=== PATIENT | male | born 1950 | race Caucasian/White ===

== ENCOUNTER 2016-09-13 11:33 | Inpatient (IN) ==
[2016-09-13 12:26] LABS: Basophils % 0.3 %; Eosinophils % 0.2 %; Hematocrit 48.3 % (37.5-50.1); Hemoglobin 15.8 g/dL (12.9-16.9); Immature Granulocytes % 0.4 % (0-4); Lymphocytes # 2.3 K/mcL (0.6-4.6); Lymphocytes % 22.1 %; Mean Corpuscular HGB Conc 32.7 g/dL (31.6-35.5); Mean Corpuscular Hemoglobin 30.3 pg (28.0-33.3); Mean Corpuscular Volume 92.7 fL (83.0-100.0); Mean Platelet Volume 10.4 fL (9.4-12.4); Monocytes # 0.8 K/mcL (0.0-1.3); Monocytes % 7.7 %; Neutrophils # 7.1 K/mcL (1.6-8.9); Platelet Count 220 K/mcL (140-400); Red Blood Count 5.21 M/mcL (4.19-5.50); Segmented Neutrophils % 69.3 %
[2016-09-13 12:32] LABS: BUN/Creatinine Ratio 25 (6-26); Blood Urea Nitrogen 32 mg/dL (8-26); Carbon Dioxide 23 mEq/L (19-29); Chloride 102 mEq/L (98-109); Glucose 114 mg/dL (70-99); Osmolality,Calculated 292 (280-300); Potassium 3.9 mEq/L (3.5-4.5); Sodium 137 mEq/L (136-145); eGFR For African Americans > 60 (> 60); eGFR For Non-African Americans 57 (> 60)
[2016-09-13] MEDS ORDERED: Ipratropium/Albuterol Neb 3 ML IH ONE ×2 (12:38→13:23)
--- NOTE | 2016-09-13 12:38 | Emergency Department Note ---
Disposition Clinical Impression: CHF exacerbation Qualifiers: Congestive heart failure type: unspecified congestive heart failure type Qualified Code(s): I50.9 - Heart failure, unspecified Disposition: Admitted As Inpatient Condition: Fair Time of Disposition: 18:00 SOB HPI - General Chief Complaint: ED Shortness of Breath/Dyspnea Stated Complaint: CHIRAG Time Seen by Provider: 09/13/16 12:06 Source: patient Limitations: no limitations Nursing Notes Reviewed: Yes Vital Signs Reviewed: Yes - History of Present Illness Patient is a 66 year old male with a history of COPD and CHF. His CHF was diagnosed 4 months ago. He says he has been having chest pain and shortness of breath since that time. It has progressively been getting worse over the past two weeks. He has has required fluid to be taken off of his lungs two times in the past. He states he had a cardiac cath in May which was normal. He says he has home oxygen which he uses very rarely. He denies any history of cancer, any recent surgeries, or long car or plane rides. He has no history of DVT or PE, and has never had a stroke or NH. Pt Subjective Complaint: shortness of breath Onset (ago): week(s) Context: recent illness Severity: moderate Consistency/Duration: gradually worsening Improves with: rest Worsens with: movement Associated symptoms: Reports: chest pain Treatment prior to arrival: none Cough present: Yes Cough Frequency: Intermittent - Related Data Home oxygen amount: none Home Medications Medication Instructions Recorded Confirmed Albuterol Neb [Proventil Neb] 2.5 mg IH Q6H PRN 09/13/16 09/13/16 Lansoprazole [Prevacid] 30 mg PO DAILY 09/13/16 09/13/16 Previous Rx's Medication Instructions Recorded Albuterol Sulfate [Ventolin Hfa] 2 puff IH Q4H PRN #1 hfa.aer.ad 07/26/16 Aspirin 81 mg PO DAILY tab.chew 07/26/16 Carvedilol [Coreg] 6.25 mg PO BID #60 tablet 07/26/16 Lisinopril 2.5 mg PO DAILY #30 tablet 07/26/16 Umeclidinium [place] [Incruse 62.5 mcg IH DAILY #1 blst.w.dev 07/26/16 Ellipta] Furosemide [Lasix] 40 mg PO BIDDIURETIC #60 tablet 08/06/16 Allergies Allergy/AdvReac Type Severity Reaction Status Date / Time codeine Allergy Redness of Verified 08/04/16 12:40 Skin Sulfa (Sulfonamide Allergy Blister Verified 08/04/16 12:40 Antibiotics) All systems ED: reviewed and negative except as stated. Past Medical History - Past Medical History Attestation: Yes The following information was validated with the patient. Source: patient Medical history: Reports: arthritis, cardiomyopathy, CHF, COPD, coronary artery disease, other Psychiatric history: Reports: no psych history - Social History Smoking Status: Current every day smoker Smokeless Tobacco Status: No Alcohol use: Reports: none Drug use: Reports: none Physical Exam - General Limitations: no limitations General appearance: alert, in no apparent distress - Head Head exam: atraumatic, normocephalic, normal inspection - Eye Eye exam: Present: normal appearance, PERRL, EOMI - ENT ENT exam: normal exam, normal oropharynx, mucous membranes moist - Neck Neck exam: Present: normal inspection, full ROM, trachea midline - Chest Chest inspection: Present: normal inspection, symmetric chest wall rise - Respiratory Respiratory exam: Present: other (decreased breath sounds bilaterally) - Cardiovascular Cardiovascular exam: Present: normal rhythm, tachycardia - Abdominal Exam Abdominal exam: Present: soft, Non-Tender. Absent: tenderness, distention, guarding, rebound, rigidity - Extremities Exam Extremities exam: Present: pedal edema (2+ pitting) - Back Exam Back exam: Present: normal inspection, full ROM. Absent: tenderness - Neurological Exam Neurological exam: Present: alert, oriented X3 - Psychiatric Psychiatric exam: Present: normal affect, normal mood - Skin Skin exam: Present: warm, dry, intact, normal color Course Course Narrative: patient seen and examined. Difficulty breathing with recent diagnosis of congestive heart failure. According to his chart, most recent ejection fraction is 10-15%. Recent heart catheter at [place] was negative. He has been on 40 mg of Lasix twice a day and then has been taking one 120 mg daily now for a few days and still having increasing swelling and difficulty breathing. Cardiopulmonary workup initiated. - Reevaluation(s) Reevaluation #1: Patient's lab work shows worsening BNP now 3200 compared to previously 2800. No elevation in troponin. Chest x-ray shows vascular congestion. I spoke with curb builder Dr. Leavitt who will see patient in consult for CHF exacerbation. I spoke with hospitalist who has accepted patient for admission. Would like 40mg IV lasix, Time: 18:59 Vital Signs Temperature 98.3 F 09/13/16 11:38 Pulse Rate 103 09/13/16 11:38 Respiratory Rate 18 09/13/16 11:38 Blood Pressure 100/75 09/13/16 11:38 O2 Sat by Pulse Oximetry 94 L 09/13/16 11:38 Temperature 97.7 F 09/13/16 14:34 Pulse Rate 88 09/13/16 14:34 Respiratory Rate 20 09/13/16 18:59 Blood Pressure 103/70 09/13/16 14:34 O2 Sat by Pulse Oximetry 99 09/13/16 18:59 Oxygen Delivery Oxygen Delivery Nasal Cannula Shortness of Breath/Dyspnea - Medical Records Medical records reviewed: Yes I reviewed the patient's medical records. - Lab Data Lab results reviewed: Yes I reviewed the patient's lab results. Result diagrams: 09/13/16 12:05 09/13/16 18:29 Lab Results 09/13/16 09/13/16 09/13/16 Range/Units 12:05 12:05 12:05 WBC 10.2 (4.3-11.1) K/mcL RBC 5.21 (4.19-5.50) M/mcL Hgb 15.8 (12.9-16.9) g/dL Hct 48.3 (37.5-50.1) % MCV 92.7 (83.0-100.0) fL MCH 30.3 (28.0-33.3) pg MCHC 32.7 (31.6-35.5) g/dL RDW 14.0 (11.5-14.5) % Plt Count 220 (140-400) K/mcL MPV 10.4 (9.4-12.4) fL Immature Gran % 0.4 (0-4) % Seg Neutrophils % 69.3 % Lymphocytes % 22.1 % Monocytes % 7.7 % Eosinophils % 0.2 % Basophils % 0.3 % Neutrophils # 7.1 (1.6-8.9) K/mcL Lymphocytes # 2.3 (0.6-4.6) K/mcL Monocytes # 0.8 (0.0-1.3) K/mcL Eosinophils # 0.0 (0.0-0.6) K/mcL Basophils # 0.0 (0.0-0.2) K/mcL Sodium 137 (136-145) mEq/L Potassium 3.9 (3.5-4.5) mEq/L Chloride 102 (98-109) mEq/L Carbon Dioxide 23 (19-29) mEq/L BUN 32 H (8-26) mg/dL Creatinine 1.28 H (0.72-1.25) mg/dL Est GFR ( Amer) > 60 (> 60) Est GFR (Non-Af Amer) 57 L (> 60) BUN/Creatinine Ratio 25 (6-26) Glucose 114 H (70-99) mg/dL Calculated Osmolality 292 (280-300) Calcium 9.0 (8.6-10.8) mg/dL Troponin I 0.03 (0-0.03) ng/mL B-Natriuretic Peptide (0-100) pg/mL 09/13/16 Range/Units 12:05 WBC (4.3-11.1) K/mcL RBC (4.19-5.50) M/mcL Hgb (12.9-16.9) g/dL Hct (37.5-50.1) % MCV (83.0-100.0) fL MCH (28.0-33.3) pg MCHC (31.6-35.5) g/dL RDW (11.5-14.5) % Plt Count (140-400) K/mcL MPV (9.4-12.4) fL Immature Gran % (0-4) % Seg Neutrophils % % Lymphocytes % % Monocytes % % Eosinophils % % Basophils % % Neutrophils # (1.6-8.9) K/mcL Lymphocytes # (0.6-4.6) K/mcL Monocytes # (0.0-1.3) K/mcL Eosinophils # (0.0-0.6) K/mcL Basophils # (0.0-0.2) K/mcL Sodium (136-145) mEq/L Potassium (3.5-4.5) mEq/L Chloride (98-109) mEq/L Carbon Dioxide (19-29) mEq/L BUN (8-26) mg/dL Creatinine (0.72-1.25) mg/dL Est GFR ( Amer) (> 60) Est GFR (Non-Af Amer) (> 60) BUN/Creatinine Ratio (6-26) Glucose (70-99) mg/dL Calculated Osmolality (280-300) Calcium (8.6-10.8) mg/dL Troponin I (0-0.03) ng/mL B-Natriuretic Peptide 3638 H (0-100) pg/mL - Radiology Data Radiology results reviewed: Yes I reviewed the patient's radiology results. - EKG Data EKG attestation: Yes I reviewed and interpreted this EKG. EKG shows normal: Reports: sinus rhythm Attestation Statement - Attestation Attestation: I examined this patient and my medical decision-making was reviewed with the Resident Physician. I agree with the documented findings, disposition and treatment plan as described except to the extent set forth below. Pt with severe underlying heart failure presenting with shortness of breath. Also complaining of cough and inability to bring up any sputum. Has not documented a temperature but says that he had chills and rigors overnight last night. Describes orthopnea as well. Has bibasilar rales on my exam, more pronounced on the right with slight decreased breath sounds on the right compared to the left. He has mild JVD and mild hepatojugular reflux as well. Pressure is running between 89 and 102 systolic, he says that he usually runs right around 100 systolic, this is normal blood pressure for him, he is not symptomatically hypotensive. He says his heart rate usually runs high, 100 or more. His heart rate is currently running in the 90s and low 100s. He does not meet SIRS criteria. While I am sure that his heart failure is contributing to his shortness of breath, and may even be the primary cause, the riders combined with the cough and the suggestion of infiltrate on the chest x-ray suggests pneumonia, which given his recent hospitalization would be healthcare associated. Blood cultures sent, appropriate antibiotics ordered. Patient being admitted to hospitalist with consult to cardiology.
[2016-09-13] MEDS ORDERED: Levofloxacin 750 MG/150 ML 750 MG/150 ML BAG IVPB ONE (13:24)
[2016-09-13] MEDS ORDERED: Cefepime HCl 1,000 MG in D5% in Water (Mini-Bag+) 100 ML IVPB ONE (13:25)
[2016-09-13] MEDS ORDERED: Furosemide 40 MG/4 ML VIAL IVP ONE (13:29)
[2016-09-13] MEDS ORDERED: Vancomycin 1,250 MG in D5% in Water 250 ML IVPB ONE (14:00)
[2016-09-13] MEDS ORDERED: Naloxone 0.4 MG/ML INJ IVP PRN (14:01)
[2016-09-13] MEDS ORDERED: Acetaminophen 325 MG TABLET PO PRN (14:01)
[2016-09-13] MEDS ORDERED: Ondansetron 4 MG/2 ML VIAL IVP PRN (14:01)
--- NOTE | 2016-09-13 14:01 | Internal Med History&Physical ---
Date of Encounter: 09/13/16 Time of Encounter: 14:01 Assessment and Plan (1) Acute on chronic systolic (congestive) heart failure Current visit: Yes Status: Acute Recurrent episodes despite medical compliance; may need to change diuretics; will try IV Bumex 1mg BID for now; Telemetry monitoring, serial Troponins; BNP noted to be elevated from last admission; recent cardiac catheterization showed normal coronaries; Echocardiogram in Jul 2016 showed EF 10-15%, global LV hypokinesis, moderate biatrial enlargement, mild-moderate MR and pulmonary HTN; and monitor input/output closely; daily weights and fluid restriction to 1000cc/ day; continue beta-pito and hold ACEI for now due to mild kidney dysfunction ; Cardiology consulted by ER physician, will f/up recommendations; (2) Chronic respiratory failure Current visit: Yes Status: Chronic due to underlying COPD and CHF; continue PRN bronchodilators and supplemental O2 ; Qualifiers: Respiratory failure complication: hypoxia Qualified Code(s): J96.11 - Chronic respiratory failure with hypoxia (3) Neurogenic bladder Current visit: Yes Status: Chronic will place indwelling Reeves catheter while inpatient for urine output monitoring ; (4) Cardiomyopathy Current visit: Yes Status: Chronic Qualifiers: Cardiomyopathy type: unspecified Qualified Code(s): I42.9 - Cardiomyopathy , unspecified Internal Medicine - H&P: HPI Chief complaint: Shortness of breath Admitted From: Emergency Dept Plans for Post Hospital Care: Home History of present illness: Mr. Hardwick is a 66 year old male with history of recently diagnosed systolic CHF, presents with complaints of worsening shortness of breath. Patient was recently treated for acute CHF and discharged from our hospital less than 2 weeks back. He reports that he initially felt better for a few days and gradually started developing exertional dyspnea, currently progressed to dyspnea at rest, associated with intermittent retrosternal chest pain, palpitations and leg swelling. He reports early satiety and anorexia and generalized weakness. He is compliant with his fluid restriction and Lasix and has also tried increasing the frequency to 3 times a day for the last 2 days with no improvement in his symptoms. He feels better with IV Lasix with appropriate urine output but reports that his urine output is not so good with oral Lasix. He does do intermittent self-catheterization due to history of neurogenic bladder. Past Med Surg Social Fam HX - Past Medical History Medical history: arthritis, cardiomyopathy (Dilated), CHF (Systolic), COPD, other Psychiatric history: no psych history - Past Surgical History Surgical History: orthopedic, other (Right shoulder rotator cuff tear surgery) - Social History Smoking Status: Current some day smoker (Changed from smoking cigarettes 2 cigars about 10 years ago, currently only smokes occasional cigars) Smokeless Tobacco Status: No Alcohol use: none Drug use: none - Family History Father Hx Family Cardiac Disorders: Yes Internal Medicine - H&P: Meds Albuterol Sulfate [Ventolin Hfa] 2 puff IH Q4H PRN #1 hfa.aer.ad 07/26/16 [Rx] Aspirin 81 mg PO DAILY tab.chew 07/26/16 [Rx] Carvedilol [Coreg] 6.25 mg PO BID #60 tablet 07/26/16 [Rx] Lisinopril 2.5 mg PO DAILY #30 tablet 07/26/16 [Rx] Umeclidinium [place] [Incruse Ellipta] 62.5 mcg IH DAILY #1 blst.w.dev 07/26/16 [Rx] Furosemide [Lasix] 40 mg PO BIDDIURETIC #60 tablet 08/06/16 [Rx] Albuterol Neb [Proventil Neb] 2.5 mg IH Q6H PRN 09/13/16 [History] Lansoprazole [Prevacid] 30 mg PO DAILY 09/13/16 [History] Allergies codeine Allergy (Verified 08/04/16 12:40) Redness of Skin Sulfa (Sulfonamide Antibiotics) Allergy (Verified 08/04/16 12:40) Blister All Systems PM: A 10-system review of systems was performed and is negative for pertinent findings except as documented above in the HPI. - Constitutional Constitutional: anorexia, weakness, weight gain - EENT Eyes: no change in vision, no discharge, no pain, no photophobia Ears: no ear discharge, no ear pain, no tinnitus Nose, mouth and throat: no dysphagia, no nasal discharge, no neck pain, no sore throat - Cardiovascular Cardiovascular ROS IM: dyspnea, dyspnea on exertion, edema, orthopnea, palpitations - Respiratory Respiratory: no cough, no dyspnea, no wheezing, no excessive phlegm production - Gastrointestinal Gastrointestinal: no abdominal pain, no diarrhea, no hematemesis, no hematochezia, no melena, no nausea, no vomiting - Musculoskeletal Musculoskeletal ROS IM: no numbness, no tingling - Integumentary Integumentary IM: no rash, no unusual bruising - Neurological Neurological ROS: no confusion, no convulsions, no focal weakness, no numbness, no tingling, no tremor(s) - Hematologic/Lymphatic Hematologic/Lymphatic: no easy bruising - Constitutional Vitals: Temp Pulse Resp BP Pulse Ox 98.3 F 91 20 102/74 98 09/13/16 11:38 09/13/16 13:19 09/13/16 13:19 09/13/16 13:19 09/13/16 13:19 General appearance: Present: mild distress, A&O X 3, answers questions appropriately Exam: thin-built - Head Head exam: Present: atraumatic, normocephalic - Neck Neck exam general surgery: Present: supple, trachea midline. Absent: lymphadenopathy - Respiratory Respiratory exam: Present: wheezes (B/L end-expiratory wheezing). Absent: accessory muscle use, rales, rhonchi - Cardiovascular Cardiovascular exam: Present: RRR, +S1, +S2. Absent: diastolic murmur, gallop, rubs, systolic murmur - GI/Abdominal GI/Abdominal exam: Present: normal bowel sounds, soft, no peritoneal signs. Absent: distended, tenderness - Extremities Exam Extremities exam: Present: full ROM, pedal edema (1+ pitting pedal edema B/L lower legs), warm, radial pulses palpable and symetrical. Absent: calf tenderness, cyanotic - Neurological Exam Neurological exam: Present: CN II-XII intact, oriented X3, no focal deficits. Absent: pronater drift, facial droop, speech deficit - Skin Skin exam: Present: dry, intact Internal Med - H&P Results - Labs CBC & Chem 7: 09/13/16 12:05 09/13/16 12:05 - EKG Data -: EKG Interpreted by Myself EKG shows normal: sinus rhythm Rate: tachycardia - EKG Data Prior EKG available for review: yes When compared to previous EKG: there is no significant change EKG comments: 09/13/16 14:49 TWI in lateral leads, old change
[2016-09-13] MEDS ORDERED: Ipratropium/Albuterol Neb 3 ML IH PRN (14:07)
--- NOTE | 2016-09-13 15:52 | Cardiology Consult Note ---
<Tani Goldsmith - Last Filed: 09/13/16 16:39> Date of Encounter: 09/13/16 Time of Encounter: 15:49 Assessment and Plan (1) Acute on chronic systolic (congestive) heart failure Current Visit: Yes Status: Acute Mr. Hardwick is a 66 year old male with a recent diagnosis of systolic heart failure first diagnosed at [place] with an Echocardiogram in Jul 2016 EF of 10 -15%, global LV hypokinesis, moderate bilateral enlargement, mild-moderate MR and pulmonary HTN; recent cardiac catheterization showed normal coronaries. - He states he has been compliant with his prescribed medications and restricting his fluid intake at home. - Trop x1 0.03, BNP 3638, CXR has been reviewed and does not demonstrate significant pulmonary edema. - Patient has clinical findings of chf exacerbation with 2+ bilateral LE edema, abdominal edema, JVD and significant orthopnea Patient has received 40mg Lasix IV, Catheter placement, started on Bumex 1mg IVP , Coreg 6.25mg PO BID. Lisinopril held with CONOR. Plan: - Continue Bumex, Betablocker - Ordered CMP, TSH, Lipid panel - Patient may require ionotropic therapy to maintain blood pressure with diuresis may consider dopamine addition. (2) Cardiomyopathy Current Visit: Yes Status: Chronic Known history of Cardiomyopathy with unknown cause. Possibility of EtOH induced cardiomyopathy with history of alcohol abuse. Qualifiers: Cardiomyopathy type: unspecified Qualified Code(s): I42.9 - Cardiomyopathy , unspecified (3) Pleural effusion Current Visit: No Status: Chronic CXR demonstrates small pleural effusion and patient has had recent right sided thoracentesis 08/30/2016 in the outpatient setting. Suspect secondary to fluid overload. Discussion w patient/family: The assessment and plan as outlined above was discussed with the patient and/or family members who expressed understanding and agreement. All questions were answered. Thank you for involving us in the care of your patient. Please call with any questions. History of Present Illness Consult date: 09/13/16 Requesting physician: Zoya Grijalva Consult reason: acute on chronic recurrent CHF Chief complaint: SOB History of present illness: Mr. Hardwick is a 66 year old male with a recent diagnosis of severe systolic CHF , HLD, HTN, 50+ pack year of smoking, known COPD was admitted with increasing SOB and edema. Mr. Hardwick says that he has been declining since his diagnosis of systolic heart failure this past fall. He has continued to gain fluid weight despite maintaining compliance with his oral medications including Coreg, Lasix 40mg TID and ASA. He says that he has felt more lethargic and hardly leaves the couch or his home. He has restricted his fluid intake but continues to gain weight. He feel that his abdomen is so distended he has trouble swallowing food and has had a lack of appetite with most days only eating half a bowl of soup. His abdominal distention he describes as a balloon about to burst. He also has had occasional sharp pains in the areas of his kidneys bilaterally in the past few days. He self cath's and his sister at bedside is worried he is not doing it frequently enough to remove fluid. His shortness of breath has been worsening over the past few days but declining over the past few months. He now can not lay down or lean back without becoming severly short of breath. He denies chest pain but describes his chest heaviness as bilaterally and as if his lungs were sand bags. He feels that his overall health is declining. Past Med Surg Social Fam HX - Past Medical History Medical history: arthritis, cardiomyopathy, CHF, COPD, other Psychiatric history: no psych history - Past Surgical History Surgical History: orthopedic, other - Social History Smoking Status: Current some day smoker Smokeless Tobacco Status: No Alcohol use: none Drug use: none - Family History Father Hx Family Cardiac Disorders: Yes Medications and Allergies Albuterol Sulfate [Ventolin Hfa] 2 puff IH Q4H PRN #1 hfa.aer.ad 07/26/16 [Rx] Aspirin 81 mg PO DAILY tab.chew 07/26/16 [Rx] Carvedilol [Coreg] 6.25 mg PO BID #60 tablet 07/26/16 [Rx] Lisinopril 2.5 mg PO DAILY #30 tablet 07/26/16 [Rx] Umeclidinium [place] [Incruse Ellipta] 62.5 mcg IH DAILY #1 blst.w.dev 07/26/16 [Rx] Furosemide [Lasix] 40 mg PO BIDDIURETIC #60 tablet 08/06/16 [Rx] Albuterol Neb [Proventil Neb] 2.5 mg IH Q6H PRN 09/13/16 [History] Lansoprazole [Prevacid] 30 mg PO DAILY 09/13/16 [History] Allergies codeine Allergy (Verified 08/04/16 12:40) Redness of Skin Sulfa (Sulfonamide Antibiotics) Allergy (Verified 08/04/16 12:40) Blister All Systems Review: A 10-system review of systems was performed and is negative for pertinent findings except as documented above in the HPI. - Constitutional Constitutional: lethargy, weakness, weight gain - EENT Eyes: no loss of vision, no pain Nose, mouth and throat: no sore throat, no throat swelling - Cardiovascular Cardiovascular: dyspnea at rest, dyspnea on exertion, leg edema, orthopnea, no chest pain at rest - Respiratory Respiratory: dyspnea, no hemoptysis, no wheezing - Gastrointestinal Gastrointestinal: abdominal pain, no diarrhea, no dysphagia, no nausea - Genitourinary Genitourinary: no dysuria, no hematuria - Integumentary Integumentary: no erythema, no rash - Neurological Neurological: no loss of vision, no memory loss, no syncope Physical Examination General: Conversant, No Apparent Distress HEENT: Atraumatic, Normocephaly, Mucus Membranes Moist Neck: Normal carotid pulses, Other (JVD present bilateral) Cardiac: Reg Rate and Rhythm, No Murmur Lungs: Other (breath sounds were slighly diminished in the lung bases and there was a diffuse expiratory wheeze) Neuro: Alert and responsive, No focal deficits noted Abdomen: Other (distended with superficial skin edema) Skin: No rashes noted on visualized skin Musculoskeletal: No Chest Wall Tenderness Extremities: No Clubbing, No Cyanosis, Normal Pulses, Other (Patient had 2+ bilateral LE edema all the way up through the thighs bilaterally. ) Other: Patient is sitting up at a 90 degree angle and demonstrates dyspnea with any decline in angle. Results 09/13/16 12:05 09/13/16 12:05 Consult Discharge Plan - Plan Referrals: Yareli Fish CNP [Primary Care Provider] - <Mackenzie Leavitt - Last Filed: 09/13/16 17:07> Date of Encounter: 09/13/16 Assessment and Plan Discussion w patient/family: The assessment and plan as outlined above was discussed with the patient and/or family members who expressed understanding and agreement. All questions were answered. Thank you for involving us in the care of your patient. Please call with any questions. History of Present Illness History of present illness: Mr. Hardwick is a 66 year old male All Systems Review: A 10-system review of systems was performed and is negative for pertinent findings except as documented above in the HPI. Results 09/13/16 12:05 09/13/16 12:05 - Attending Attestation I examined this patient and my medical decision-making was reviewed with the BAR TACKER/PA/Advanced Practice Nurse/Resident Physician. I agree with the documented findings, disposition and treatment plan. Mr. Hardwick is a very pleasant 66 year old male presenting for worsening SOB. Patient has a recent diagnosis of NICM, EF 10-15% though possibly alcohol induced. The patient denies recent alcohol use. Over the past few weeks he has been troubled by difficulty breathing. He has been unable to lay flat for sleep. He also had chills the last few days. His weight in July was 140 lbs and now is 158 lbs. His CXR does not report edema but concern for infiltrate. BNP 3000's. He is being treated with IV Abx. The patient is also concerned about abdominal swelling and discomfort. He denies increase in sodium intake as he reports a lack of appetite. The patient appears fluid overloaded with LE edema and elevated JVP most consistent with acute decompensated systolic heart failure. He complains of abdominal swelling but this may be secondary to increased bladder distension from taking lasix-the patient does self urinary catheterization. I agree with IV diuresis. Will defer to primary team for evaluation of abdominal discomfort.
[2016-09-13] MEDS: Bumetanide 1 MG/4 ML VIAL IVP SCH (16:12)
[2016-09-13] MEDS: *HR* Heparin 5,000 UNIT/ML VIAL SQ SCH (16:13)
[2016-09-13 19:25] LABS: Alanine Aminotransferase 29 Units/L (0-55); Albumin 2.7 g/dL (3.5-5.0); Albumin/Globulin Ratio 0.9 (1.1-2.2); Alkaline Phosphatase 58 Units/L (38-126); Aspartate Amino Transferase 30 Units/L (5-34); BUN/Creatinine Ratio 24 (6-26); Bilirubin,Total 1.2 mg/dL (0.2-1.2); Blood Urea Nitrogen 29 mg/dL (8-26); Calcium 8.5 mg/dL (8.6-10.8); Carbon Dioxide 22 mEq/L (19-29); Chloride 102 mEq/L (98-109); Chol/HDL Ratio 6.7 (0-4.9); Cholesterol 134 mg/dL (< 200); Globulin 3.1 g/dL (2.4-3.5); Glucose 132 mg/dL (70-99); HDL Cholesterol 20 mg/dL (40-59); LDL Cholesterol,Calculated 99 mg/dL (0-99); Osmolality,Calculated 290 (280-300); Potassium 3.8 mEq/L (3.5-4.5); Sodium 136 mEq/L (136-145); Total Protein 5.8 g/dL (6.0-8.3); Triglycerides 73 mg/dL (< 150); eGFR For African Americans > 60 (> 60); eGFR For Non-African Americans > 60 (> 60)
[2016-09-13] MEDS: *HR* LORazepam 2 MG/ML VIAL IVP PRN (19:32)
[2016-09-14] MEDS ORDERED: traMADol 50 MG TABLET PO PRN (00:17)
[2016-09-14 01:57] LABS: Basophils % 0.3 %; Eosinophils # 0.1 K/mcL (0.0-0.6); Eosinophils % 0.7 %; Hematocrit 47.7 % (37.5-50.1); Hemoglobin 15.8 g/dL (12.9-16.9); Immature Granulocytes % 0.3 % (0-4); Lymphocytes # 2.5 K/mcL (0.6-4.6); Lymphocytes % 26.3 %; Mean Corpuscular HGB Conc 33.1 g/dL (31.6-35.5); Mean Corpuscular Hemoglobin 30.6 pg (28.0-33.3); Mean Corpuscular Volume 92.4 fL (83.0-100.0); Mean Platelet Volume 10.3 fL (9.4-12.4); Monocytes # 0.7 K/mcL (0.0-1.3); Monocytes % 7.6 %; Neutrophils # 6.1 K/mcL (1.6-8.9); Platelet Count 204 K/mcL (140-400); Red Blood Count 5.16 M/mcL (4.19-5.50); Red Cell Distribution Width 14.1 % (11.5-14.5); Segmented Neutrophils % 64.8 %
[2016-09-14 02:11] LABS: BUN/Creatinine Ratio 25 (6-26); Blood Urea Nitrogen 30 mg/dL (8-26); Calcium 8.5 mg/dL (8.6-10.8); Carbon Dioxide 24 mEq/L (19-29); Chloride 102 mEq/L (98-109); Glucose 129 mg/dL (70-99); Osmolality,Calculated 292 (280-300); Phosphorous 4.1 mg/dL (2.3-4.7); Sodium 137 mEq/L (136-145); eGFR For African Americans > 60 (> 60); eGFR For Non-African Americans > 60 (> 60)
[2016-09-14 02:13] LABS: Magnesium 2.4 mg/dL (1.6-2.6); Potassium 4.3 mEq/L (3.5-4.5)
[2016-09-14] MEDS ORDERED: Ibuprofen 600 MG TABLET PO PRN (03:44)
[2016-09-14] MEDS: *HR* HYDROcodone/Acet 5/325 mg TABLET PO PRN ×3 (04:18→17:33)
[2016-09-14] MEDS: *HR* LORazepam 2 MG/ML VIAL IVP PRN ×2 (05:52→21:07)
[2016-09-14] MEDS: *HR* Heparin 5,000 UNIT/ML VIAL SQ SCH ×2 (05:52→17:30)
[2016-09-14] MEDS: Bumetanide 1 MG/4 ML VIAL IVP SCH ×2 (08:25→16:20)
[2016-09-14] MEDS: Aspirin 81 MG TAB.CHEW PO SCH (08:42)
--- NOTE | 2016-09-14 10:00 | Electrocardiograph Report ---
[facility] Test Date: 2016-09-13 Pat Name: Jason Hardwick Department: [id number] Room: 2NE23 Gender: M Twitchell Operator: MOE : [id number] Requested By: Yee Hodges Order Number: [id number] Reading MD: Misha Kirk MD Measurements Intervals [place] Rate: 103 P: 74 [place]: 185 QRS: -13 QRSD: 95 T: 0 QT: 354 QTc: 414 Interpretive Statements SINUS TACHYCARDIA LEFT ATRIAL ENLARGEMENT LATERAL ISCHEMIA Electronically Signed On 09-14-16 09:59:18 EST by Misha Kirk MD
--- NOTE | 2016-09-14 11:04 | Cardiology Progress Note ---
<Tani Goldsmith - Last Filed: 09/14/16 11:29> Date of Encounter: 09/14/16 Time of Encounter: 09:40 Assessment and Plan (1) Acute on chronic systolic (congestive) heart failure Current Visit: Yes Status: Acute Mr. Hardwick is a 66 year old male with a recent diagnosis of systolic heart failure first diagnosed at [place] with an Echocardiogram in Jul 2016 EF of 10 -15%, global LV hypokinesis, moderate bilateral enlargement, mild-moderate MR and pulmonary HTN; recent cardiac catheterization showed normal coronaries. - He states he has been compliant with his prescribed medications and restricting his fluid intake at home. - Trop x1 0.03, BNP 3638, CXR has been reviewed and does not demonstrate significant pulmonary edema. - Patient has clinical findings of chf exacerbation with 2+ bilateral LE edema, abdominal edema, JVD and significant orthopnea Patient has received 40mg Lasix IV, Catheter placement, started on Bumex 1mg IVP , Coreg 6.25mg PO BID. Lisinopril held with CONOR. 09/14/2016: Patient was hypotensive this morning SBP in the 80's. Bumex dose was held. Patient is currently normotensive with adequate urine output. He remains fluid overloaded clinically. He is improved symptom parra. Plan: - Reduce Coreg to 3.125 BID, give one time dose of Bumex this am and continue with scheduled dosing this evening. - Patient may require ionotropic therapy to maintain blood pressure with diuresis may consider dopamine addition. - Continue STRICT intake and output recording with daily weights. (2) Cardiomyopathy Current Visit: Yes Status: Chronic Known history of Cardiomyopathy with unknown cause. Possibility of EtOH induced cardiomyopathy with history of alcohol abuse. Qualifiers: Cardiomyopathy type: unspecified Qualified Code(s): I42.9 - Cardiomyopathy , unspecified (3) Pleural effusion Current Visit: No Status: Chronic CXR demonstrates small pleural effusion and patient has had recent right sided thoracentesis 08/30/2016 in the outpatient setting. Suspect secondary to fluid overload. Discussion w patient/family: The assessment and plan as outlined above was discussed with the patient and/or family members who expressed understanding and agreement. All questions were answered. Thank you for involving us in the care of your patient. Please call with any questions. Subjective Interval history: Mr. Hardwick s/p bare metal stent in circumflex for STEMI is alert, awake, interactive, and in no acute distress. He says that his breathing is much improved but not back to baseline. He slept well over night and has no complaints. He is still edematous but feels his LE edema is improved. He has been drinking fluids and understands needing a fluid restriction. He is able to lay more flat today without significant shortness of breath. No further questions at this time. Objective Vital Signs, Last 4 Hours Temp Pulse Resp BP Pulse Ox 09/14/16 08:48 95 09/14/16 07:25 97.5 F L 97 16 95/73 95 General: Conversant, No Apparent Distress HEENT: Atraumatic, Normocephaly, Mucus Membranes Moist Neck: Normal carotid pulses, Other (patient has bilateral JVD) Cardiac: Reg Rate and Rhythm, No Murmur Lungs: Other (patient has diffuse tight breath sounds with expiratory wheeze) Neuro: Alert and responsive, No focal deficits noted Abdomen: Soft, Other (abdomen feels full with edematous skin) Skin: No rashes noted on visualized skin Musculoskeletal: No Chest Wall Tenderness Extremities: No Clubbing, No Cyanosis, Normal Pulses, Other (bilateral LE 2+ pitting edema. ) Other: Patient is sitting up at 80 degree angle in no acute distress. He feels his breathing is improving. Results 09/14/16 01:31 09/14/16 01:31 Lab Results 09/13/16 09/13/16 09/13/16 18:29 18:29 18:29 WBC Hgb Hct Plt Count Sodium 136 Potassium 3.8 Chloride 102 Carbon Dioxide 22 BUN 29 H Creatinine 1.19 Glucose 132 H Calcium 8.5 L Magnesium Total Bilirubin 1.2 AST 30 ALT 29 Alkaline Phosphatase 58 Troponin I 0.02 TSH 0.682 09/14/16 09/14/16 09/14/16 01:31 01:31 01:31 WBC 9.5 Hgb 15.8 Hct 47.7 Plt Count 204 Sodium 137 Potassium 4.3 Chloride 102 Carbon Dioxide 24 BUN 30 H Creatinine 1.21 Glucose 129 H Calcium 8.5 L Magnesium 2.4 Total Bilirubin AST ALT Alkaline Phosphatase Troponin I 0.01 TSH 09/14/16 06:38 WBC Hgb Hct Plt Count Sodium Potassium Chloride Carbon Dioxide BUN Creatinine Glucose Calcium Magnesium Total Bilirubin AST ALT Alkaline Phosphatase Troponin I 0.02 TSH Consult Discharge Plan - Plan Referrals: Yareli Fish, BULL FLOAT FINISHER [Primary Care Provider] - <Mackenzie Leavitt - Last Filed: 09/14/16 16:55> Date of Encounter: 09/14/16 Assessment and Plan Discussion w patient/family: I examined this patient and my medical decision-making was reviewed with the TROLLEY CAR OPERATOR/PA/Advanced Practice Nurse/Resident Physician. I agree with the documented findings, disposition and treatment plan. Mr. Hardwick has refractory heart failure and hypotension with inadequate diuresis. I recommend starting an inotrope temporarily. Objective Vital Signs, Last 4 Hours Temp Pulse Resp BP Pulse Ox 09/14/16 16:35 97.5 F L 90 17 98/73 94 L 09/14/16 15:48 14 94 L Results 09/14/16 01:31 09/14/16 01:31 Lab Results 09/13/16 09/13/16 09/13/16 18:29 18:29 18:29 WBC Hgb Hct Plt Count Sodium 136 Potassium 3.8 Chloride 102 Carbon Dioxide 22 BUN 29 H Creatinine 1.19 Glucose 132 H Calcium 8.5 L Magnesium Total Bilirubin 1.2 AST 30 ALT 29 Alkaline Phosphatase 58 Troponin I 0.02 TSH 0.682 09/14/16 09/14/16 09/14/16 01:31 01:31 01:31 WBC 9.5 Hgb 15.8 Hct 47.7 Plt Count 204 Sodium 137 Potassium 4.3 Chloride 102 Carbon Dioxide 24 BUN 30 H Creatinine 1.21 Glucose 129 H Calcium 8.5 L Magnesium 2.4 Total Bilirubin AST ALT Alkaline Phosphatase Troponin I 0.01 TSH 09/14/16 06:38 WBC Hgb Hct Plt Count Sodium Potassium Chloride Carbon Dioxide BUN Creatinine Glucose Calcium Magnesium Total Bilirubin AST ALT Alkaline Phosphatase Troponin I 0.02 TSH
[2016-09-14] MEDS ORDERED: Bumetanide 1 MG/4 ML VIAL IVP ONE (11:07)
--- NOTE | 2016-09-14 13:40 | Internal Med Progress Note ---
Date of Encounter: 09/14/16 Time of Encounter: 11:20 - Assessment and plan (1) Malnutrition Current Visit: Yes Status: Acute Assessment and plan: Had long discussion with patient and family counseling on risk of malnutrition. We will add appetite stimulant. We will add nutritional supplements. We will consult dietary (2) Acute on chronic systolic (congestive) heart failure Current Visit: Yes Status: Acute Assessment and plan: Continue diuretics due to holes lower extremities nutritional support appreciate cardiology's input close monitoring of electrolyte. Discontinue nonsteroidal anti-inflammatory (3) Cardiomyopathy Current Visit: Yes Status: Chronic Qualifiers: Cardiomyopathy type: unspecified Qualified Code(s): I42.9 - Cardiomyopathy , unspecified (4) Acute exacerbation of chronic obstructive airways disease Current Visit: No Status: Chronic Assessment and plan: Continual aerosol treatment , Add Mucinex , may consider step down on antibiotics next AM , MRSA screening check sputum culture (5) Physical deconditioning Current Visit: Yes Status: Acute Assessment and plan: Secondary to malnutrition as well as congestive heart failure , Up to chair and ambulate. We will consult physical therapy and occupational therapy - Subjective Interval history: Patient denies any chest pain, He complains of productive cough with yellowish sputum. Decreased oral intake. Family stated marked diminished oral intake at home may be 20%. Patient denies any chest pain - Constitutional Vitals: Temp Pulse Resp BP Pulse Ox 97.5 F L 97 17 90/73 95 09/14/16 11:00 09/14/16 11:00 09/14/16 11:00 09/14/16 11:00 09/14/16 11:00 General appearance: Present: A&O X 3, no acute distress, answers questions appropriately - Respiratory Respiratory exam: Present: decreased breath sounds, CTAB, rales (Expiratory wheezing and crackles bilateral), wheezes. Absent: accessory muscle use, rhonchi - Cardiovascular Cardiovascular exam: Present: RRR, +S1, +S2, systolic murmur. Absent: gallop, rubs - GI/Abdominal GI/Abdominal exam: Present: normal bowel sounds, soft, no peritoneal signs. Absent: distended, tenderness - Extremities Exam Extremities exam: Present: pedal edema (Positive 2 lower extremity edema bilateral), warm, radial pulses palpable and symetrical. Absent: calf tenderness, cyanotic Internal Medicine: Result - Labs CBC & Chem 7: 09/14/16 01:31 09/14/16 01:31 Labs: Short CBC 09/14/16 Range/Units 01:31 WBC 9.5 (4.3-11.1) K/mcL Hgb 15.8 (12.9-16.9) g/dL Hct 47.7 (37.5-50.1) % Plt Count 204 (140-400) K/mcL Neutrophils # 6.1 (1.6-8.9) K/mcL BMP 09/13/16 09/14/16 18:29 01:31 Sodium 136 137 Potassium 3.8 4.3 Chloride 102 102 Carbon Dioxide 22 24 BUN 29 H 30 H Creatinine 1.19 1.21 Glucose 132 H 129 H Calcium 8.5 L 8.5 L Cardiac Enzymes 09/13/16 09/14/16 09/14/16 Range/Units 18:29 01:31 06:38 Troponin I 0.02 0.01 0.02 (0-0.03) ng/mL Liver Function 09/13/16 Range/Units 18:29 Total Bilirubin 1.2 (0.2-1.2) mg/dL AST 30 (5-34) Units/L ALT 29 (0-55) Units/L Alkaline Phosphatase 58 (38-126) Units/L Albumin 2.7 L (3.5-5.0) g/dL - Impressions Intake & Output 09/11/16 09/12/16 09/13/16 09/14/16 23:59 23:59 23:59 23:59 Intake Total 120 / 120 360 / 360 Output Total 1400 / 1400 500 / 500 Balance -1280 / -1280 -140 / -140 Weight 69.6 kg Consult Discharge Plan - Plan Referrals: Yareli Fish, ASSISTANT SOFTBALL COACH [Primary Care Provider] -
[2016-09-14] MEDS: Cyanocobalamin (B-12) 1,000 MCG TABLET PO SCH (14:49)
[2016-09-14] MEDS: Ipratropium/Albuterol Neb 3 ML IH SCH ×3 (15:47→23:50)
[2016-09-14] MEDS ORDERED: 0.9 % Sodium Chloride 250 ML ONE (17:29)
[2016-09-14] MEDS: Mirtazapine 15 MG TABLET PO SCH (20:59)
[2016-09-14] MEDS: (Umeclidinium Bromide [Incruse Ellipta] 62.5 MCG) IH SCH (21:14)
[2016-09-15] MEDS: *HR* HYDROcodone/Acet 5/325 mg TABLET PO PRN ×3 (01:30→20:00)
[2016-09-15] MEDS: Ipratropium/Albuterol Neb 3 ML IH SCH ×6 (03:31→23:39)
[2016-09-15] MEDS: *HR* Heparin 5,000 UNIT/ML VIAL SQ SCH ×2 (05:36→16:57)
[2016-09-15] MEDS: Aspirin 81 MG TAB.CHEW PO SCH (08:15)
[2016-09-15] MEDS: Cyanocobalamin (B-12) 1,000 MCG TABLET PO SCH (08:15)
[2016-09-15] MEDS: Bumetanide 1 MG/4 ML VIAL IVP SCH (08:16)
[2016-09-15] MEDS: (Umeclidinium Bromide [Incruse Ellipta] 62.5 MCG) IH SCH (08:16)
[2016-09-15] MEDS: *HR* LORazepam 2 MG/ML VIAL IVP PRN (08:21)
--- NOTE | 2016-09-15 08:51 | Cardiology Progress Note ---
<Tani Goldsmith - Last Filed: 09/15/16 08:44> Date of Encounter: 09/15/16 Time of Encounter: 08:44 Assessment and Plan (1) Acute on chronic systolic (congestive) heart failure Current Visit: Yes Status: Acute Mr. Hardwick is a 66 year old male with a recent diagnosis of systolic heart failure first diagnosed at [place] with an Echocardiogram in Jul 2016 EF of 10 -15%, global LV hypokinesis, moderate bilateral enlargement, mild-moderate MR and pulmonary HTN; recent cardiac catheterization showed normal coronaries. - He states he has been compliant with his prescribed medications and restricting his fluid intake at home. - Trop x1 0.03, BNP 3638, CXR has been reviewed and does not demonstrate significant pulmonary edema. - Patient has clinical findings of chf exacerbation with 2+ bilateral LE edema, abdominal edema, JVD and significant orthopnea Patient has received 40mg Lasix IV, Catheter placement, started on Bumex 1mg IVP , Coreg 6.25mg PO BID. Lisinopril held with CONOR. 09/14/2016: Patient was hypotensive this morning SBP in the 80's. Bumex dose was held. Patient is currently normotensive with adequate urine output. He remains fluid overloaded clinically. He is improved symptom parra. 09/15/2016: Patients volume status continues to improve. blood pressure remains stable with the addition of Dopamine drip. Urine output is appropriate. Continue with current plan. Patient is in stable condition. Plan: - Continue current medications and diuresis - Continue Dopamine for blood pressure support and cardiac output. - Continue STRICT intake and output recording with daily weights. (2) Cardiomyopathy Current Visit: Yes Status: Chronic Known history of Cardiomyopathy with unknown cause. Possibility of EtOH induced cardiomyopathy with history of alcohol abuse. Qualifiers: Cardiomyopathy type: unspecified Qualified Code(s): I42.9 - Cardiomyopathy , unspecified (3) Pleural effusion Current Visit: No Status: Chronic CXR demonstrates small pleural effusion and patient has had recent right sided thoracentesis 08/30/2016 in the outpatient setting. Suspect secondary to fluid overload. Discussion w patient/family: The assessment and plan as outlined above was discussed with the patient and/or family members who expressed understanding and agreement. All questions were answered. Thank you for involving us in the care of your patient. Please call with any questions. Subjective Interval history: Mr. Hardwick admitted with CHF exacerbation is alert, awake, interactive, and in no acute distress. He is sitting up eating breakfast and in no acute distress. He says his breathing is much improved and he did not need the oxygen anymore. He feels his abdominal and LE edema is improving. He continues to have the feeling of lung heaviness but denies chest pain. He maintains his appetite and denies N/V/D/C. He does not have any further questions or concerns at this time. Objective Vital Signs, Last 4 Hours Temp Pulse Resp BP Pulse Ox 09/15/16 08:21 98.4 F 111 17 97/76 92 L 09/15/16 07:46 16 94 L 09/15/16 04:51 98 F 104 16 101/78 94 L General: Conversant, No Apparent Distress HEENT: Atraumatic, Normocephaly, Mucus Membranes Moist Neck: Normal carotid pulses, Other (improving JVD) Cardiac: Reg Rate and Rhythm, Normal S1 and S2, No Murmur Lungs: Normal Breath Sounds (vesicular breathsounds are slightly deminished. ) Neuro: Alert and responsive, No focal deficits noted Abdomen: Soft, Non-Tender Skin: No rashes noted on visualized skin Musculoskeletal: No Chest Wall Tenderness Extremities: No Clubbing, No Cyanosis, Normal Pulses, Other (Patient has improving pitting edema in bilateral LE) Results 09/14/16 01:31 09/14/16 01:31 Consult Discharge Plan - Plan Referrals: Yareli Fish, LINE MAINTENANCE TECHNICIAN [Primary Care Provider] - <KevinprabhaMackenzie rothman - Last Filed: 09/15/16 16:26> Date of Encounter: 09/15/16 Assessment and Plan Discussion w patient/family: I examined this patient and my medical decision-making was reviewed with the METHANE GAS COLLECTION SYSTEM OPERATOR/PA/Advanced Practice Nurse/Resident Physician. I agree with the documented findings, disposition and treatment plan. Mr. Hardwick does not feel much better. His lung exam demonstrates poor air flow. The primary team are starting steroids for COPD. Otherwise, he is net negative 3.5 L. I recommend switching him back to lasix, checking a BNP and CXR tomorrow. He is on dopamine for inotropic support which I recommend continuing for now. We will re-evaluate tomorrow. Objective Vital Signs, Last 4 Hours Temp Pulse Resp BP Pulse Ox 09/15/16 15:40 97.9 F 107 16 109/74 90 L Results 09/14/16 01:31 09/14/16 01:31
[2016-09-15] MEDS ORDERED: 0.9 % Sodium Chloride 250 ML ONE (11:10)
[2016-09-15] MEDS ORDERED: Ipratropium/Albuterol Neb 3 ML IH PRN (13:23)
[2016-09-15] MEDS ORDERED: methylPREDNISolone 125 MG/2 ML VIAL IVP ONE (13:23)
--- NOTE | 2016-09-15 13:29 | Internal Med Progress Note ---
Date of Encounter: 09/15/16 Time of Encounter: 13:27 - Assessment and plan (1) Acute on chronic systolic (congestive) heart failure Current Visit: Yes Status: Acute Assessment and plan: Continue IV Bumex, may possibly switch to IV Lasix per cardiology recommendations Currently on dopamine drip due to hypotension Strict I's and O's and daily weight . Discontinued nonsteroidal anti-inflammatory (2) Cardiomyopathy Current Visit: Yes Status: Chronic Assessment and plan: Ejection fraction of 10-15% BNP was 3638 Continue aspirin, carvedilol Qualifiers: Cardiomyopathy type: unspecified Qualified Code(s): I42.9 - Cardiomyopathy , unspecified (3) Chronic respiratory failure Current Visit: Yes Status: Chronic Assessment and plan: Acute and chronic respiratory failure likely secondary to combination of acute COPD exacerbation probably from viral bronchitis with acute systolic CHF exacerbation Patient has also history of a right small pleural effusion, had a thoracentesis back in August. Start IV steroids with Solu-Medrol, consider antibiotics if not improving Continue DuoNeb's and oxygen therapy Qualifiers: Respiratory failure complication: hypoxia Qualified Code(s): J96.11 - Chronic respiratory failure with hypoxia (4) Acute renal injury Current Visit: No Status: Acute Assessment and plan: Improving (5) Hypotension Current Visit: No Status: Acute Assessment and plan: Stable on dopamine Qualifiers: Hypotension type: unspecified hypotension type Qualified Code(s): I95.9 - Hypotension, unspecified (6) Pleural effusion Current Visit: No Status: Chronic (7) Tobacco abuse Current Visit: No Status: Chronic Assessment and plan: Smoking cessation counseling given for 5 minutes Nicotine patch offered High risk due to hypotension and acute systolic CHF exacerbation - Time Spent With Patient Greater than 35 minutes - Subjective Interval history: Patient is still complaining of shortness of breath, complains of some mild chest pressure mostly on his left side, clear phlegm, no fevers, no abdominal pain, no dysuria or diarrhea - Constitutional Vitals: Temp Pulse Resp BP Pulse Ox 98.4 F 111 17 97/76 92 L 09/15/16 08:21 09/15/16 08:21 09/15/16 08:21 09/15/16 08:21 09/15/16 08:21 General appearance: Present: A&O X 3, no acute distress, answers questions appropriately - Head Head exam: Present: atraumatic, normocephalic - Eye Eye exam: Present: PERRL, conjuntiva pink, sclera anicteric Pupils: Present: PERRL - Neck Neck exam general surgery: Present: supple, trachea midline. Absent: lymphadenopathy - Respiratory Respiratory exam: Present: CTAB, rales (Bibasilar crackles with fine diffuse wheezing), wheezes. Absent: accessory muscle use, rhonchi - Cardiovascular Cardiovascular exam: Present: RRR, +S1, +S2. Absent: diastolic murmur, gallop, rubs, systolic murmur - GI/Abdominal GI/Abdominal exam: Present: normal bowel sounds, soft, no peritoneal signs. Absent: distended, tenderness - Extremities Exam Extremities exam: Present: pedal edema (+ 1 pitting edema in both lower extremities), warm, radial pulses palpable and symetrical. Absent: calf tenderness, cyanotic - Neurological Exam Neurological exam: Present: CN II-XII intact, oriented X3, no focal deficits. Absent: pronater drift, facial droop, speech deficit - Skin Skin exam: Present: dry, intact Internal Medicine: Result - Labs CBC & Chem 7: 09/14/16 01:31 09/14/16 01:31 Consult Discharge Plan - Plan Referrals: Yareli Fish CNP [Primary Care Provider] -
[2016-09-15] MEDS: Nicotine 21 MG PATCH.TD24 TD SCH (14:09)
[2016-09-15] MEDS ORDERED: Furosemide 40 MG/4 ML VIAL IVP ONE (16:21)
[2016-09-15] MEDS: methylPREDNISolone 125 MG/2 ML VIAL IV SCH (16:56)
[2016-09-15] MEDS: Mirtazapine 15 MG TABLET PO SCH (20:00)
[2016-09-16] MEDS: *HR* LORazepam 2 MG/ML VIAL IVP PRN ×3 (00:10→17:43)
[2016-09-16] MEDS: methylPREDNISolone 125 MG/2 ML VIAL IV SCH ×4 (00:10→23:19)
[2016-09-16] MEDS ORDERED: 0.9 % Sodium Chloride 250 ML ONE (03:28)
[2016-09-16] MEDS: Ipratropium/Albuterol Neb 3 ML IH SCH ×6 (03:45→23:57)
[2016-09-16] MEDS: *HR* Heparin 5,000 UNIT/ML VIAL SQ SCH ×2 (06:03→17:40)
[2016-09-16] MEDS: *HR* HYDROcodone/Acet 5/325 mg TABLET PO PRN ×3 (06:04→20:39)
[2016-09-16] MEDS: Furosemide 40 MG/4 ML VIAL IVP SCH ×3 (06:12→20:41)
[2016-09-16 07:14] LABS: BUN/Creatinine Ratio 25 (6-26); Blood Urea Nitrogen 25 mg/dL (8-26); Calcium 8.9 mg/dL (8.6-10.8); Carbon Dioxide 27 mEq/L (19-29); Chloride 103 mEq/L (98-109); Glucose 156 mg/dL (70-99); Osmolality,Calculated 298 (280-300); Sodium 140 mEq/L (136-145); eGFR For African Americans > 60 (> 60); eGFR For Non-African Americans > 60 (> 60)
[2016-09-16 07:18] LABS: Potassium 4.1 mEq/L (3.5-4.5)
[2016-09-16] MEDS: Aspirin 81 MG TAB.CHEW PO SCH (08:54)
[2016-09-16] MEDS: Cyanocobalamin (B-12) 1,000 MCG TABLET PO SCH (08:54)
[2016-09-16] MEDS: Nicotine 21 MG PATCH.TD24 TD SCH (08:55)
[2016-09-16] MEDS: (Umeclidinium Bromide [Incruse Ellipta] 62.5 MCG) IH SCH (09:00)
--- NOTE | 2016-09-16 11:37 | Cardiology Progress Note ---
Date of Encounter: 09/16/16 Time of Encounter: 10:30 Assessment and Plan (1) Acute on chronic systolic (congestive) heart failure Current Visit: Yes Status: Acute Mr. Alexandre has diuresed 8.5L with lasix while on dopamine for inotropic support. I recommend another 24h with this regimen. There is no sign of extravasation or peripheral ischemia. His legs are also wrapped. He is mildly tachycardic on dopamine and had a short run of probable NSVT. Potassium and magnesium are normal. Anticipate weaning off dopamine tomorrow. Discussion w patient/family: Plan of care was discussed with the patient. Subjective Principal diagnosis: CHF Interval history: No acute overnight events. Patient feels somewhat better today, less SOB. Objective Vital Signs, Last 4 Hours Temp Pulse Resp BP Pulse Ox 09/16/16 11:28 16 91 L 09/16/16 11:00 97.5 F L 104 20 118/82 97 09/16/16 10:18 91 L 09/16/16 07:51 18 91 L General: Conversant, No Apparent Distress HEENT: Mucus Membranes Moist Neck: Other (Elevated JVP) Cardiac: Reg Rate and Rhythm (Occasional tachycardia, low 100's) Lungs: Other (Diminished air entry, improved) Neuro: Alert and responsive, No focal deficits noted Abdomen: Soft, Other (bowel sounds present) Extremities: Other (legs wrapped in OLIVIA bandage) Results 09/14/16 01:31 09/16/16 06:13 Lab Results 09/16/16 09/16/16 06:13 06:13 Sodium 140 Potassium 4.1 Chloride 103 Carbon Dioxide 27 BUN 25 Creatinine 0.99 Glucose 156 H Calcium 8.9 Magnesium 2.0 B-Natriuretic Peptide 3895 H - Imaging and Cardiology Chest Xray: report reviewed - EKG Interpretation EKG results cardiology: other (24h telemetry reviewed demonstrating average HR 105 bpm, 23 beats of regular tachycardia possibly VT) Consult Discharge Plan - Plan Referrals: Yareli Fish, WEATHERSTRIP MACHINE OPERATOR [Primary Care Provider] -
--- NOTE | 2016-09-16 15:09 | Internal Med Progress Note ---
Date of Encounter: 09/16/16 Time of Encounter: 15:07 - Assessment and plan (1) Acute on chronic systolic (congestive) heart failure Current Visit: Yes Status: Acute Assessment and plan: Bumex was switched to IV Lasix per cardiology recommendations Currently on dopamine drip due to hypotension Strict I's and O's and daily weight . Discontinued nonsteroidal anti-inflammatory (2) Chronic respiratory failure Current Visit: Yes Status: Chronic Assessment and plan: Acute and chronic respiratory failure likely secondary to combination of acute COPD exacerbation probably from viral bronchitis with acute systolic CHF exacerbation Patient has also history of a right small pleural effusion, had a thoracentesis back in August. Stable on IV steroids with Solu-Medrol, consider antibiotics if not improving Continue DuoNeb's and oxygen therapy Qualifiers: Respiratory failure complication: hypoxia Qualified Code(s): J96.11 - Chronic respiratory failure with hypoxia (3) Cardiomyopathy Current Visit: Yes Status: Chronic Assessment and plan: Ejection fraction of 10-15% BNP was 3638 Continue aspirin, carvedilol Qualifiers: Cardiomyopathy type: unspecified Qualified Code(s): I42.9 - Cardiomyopathy , unspecified (4) Acute renal injury Current Visit: No Status: Acute Assessment and plan: Improving (5) Hypotension Current Visit: No Status: Acute Assessment and plan: Stable on dopamine Qualifiers: Hypotension type: unspecified hypotension type Qualified Code(s): I95.9 - Hypotension, unspecified (6) Pleural effusion Current Visit: No Status: Chronic (7) Tobacco abuse Current Visit: No Status: Chronic Assessment and plan: Smoking cessation counseling given for 5 minutes Nicotine patch offered High risk due to hypotension and acute systolic CHF exacerbation - Time Spent With Patient Greater than 35 minutes - Subjective Interval history: Patient is complaining of less shortness of breath, complains of less chest pressure mostly on his left side, clear phlegm, no fevers, no abdominal pain, no dysuria or diarrhea - Constitutional Vitals: Temp Pulse Resp BP Pulse Ox 97.5 F L 104 16 118/82 91 L 09/16/16 11:00 09/16/16 11:00 09/16/16 11:28 09/16/16 11:00 09/16/16 11:28 General appearance: Present: A&O X 3, no acute distress, answers questions appropriately - Head Head exam: Present: atraumatic, normocephalic - Eye Eye exam: Present: PERRL, conjuntiva pink, sclera anicteric Pupils: Present: PERRL - Neck Neck exam general surgery: Present: supple, trachea midline. Absent: lymphadenopathy - Respiratory Respiratory exam: Present: CTAB, rales (Fine bibasilar crackles with less wheezing). Absent: accessory muscle use, rhonchi, wheezes - Cardiovascular Cardiovascular exam: Present: RRR, +S1, +S2. Absent: diastolic murmur, gallop, rubs, systolic murmur - GI/Abdominal GI/Abdominal exam: Present: normal bowel sounds, soft, no peritoneal signs. Absent: distended, tenderness - Extremities Exam Extremities exam: Present: pedal edema (+1 pitting edema in both lower extremities has decreased), warm, radial pulses palpable and symetrical. Absent : calf tenderness, cyanotic - Neurological Exam Neurological exam: Present: CN II-XII intact, oriented X3, no focal deficits. Absent: pronater drift, facial droop, speech deficit - Skin Skin exam: Present: dry, intact Internal Medicine: Result - Labs CBC & Chem 7: 09/14/16 01:31 09/16/16 06:13 Labs: BMP 09/16/16 06:13 Sodium 140 Potassium 4.1 Chloride 103 Carbon Dioxide 27 BUN 25 Creatinine 0.99 Glucose 156 H Calcium 8.9 - Impressions Impressions Chest X-Ray 09/16/16 07:00 IMPRESSION: Mild cardiomegaly. Increased bibasilar opacification and effusion with no evidence of overt failure. D/ / Carlton Stringer MD / Carlton Stringer MD Interpreting Provider: Carlton Stringer MD Consult Discharge Plan - Plan Referrals: Yareli Fish CNP [Primary Care Provider] -
[2016-09-16] MEDS: Mirtazapine 15 MG TABLET PO SCH (20:38)
[2016-09-17] MEDS: *HR* LORazepam 2 MG/ML VIAL IVP PRN ×2 (00:15→08:16)
[2016-09-17] MEDS: Ipratropium/Albuterol Neb 3 ML IH SCH ×3 (04:16→10:48)
[2016-09-17] MEDS ORDERED: 0.9 % Sodium Chloride 250 ML ONE (04:40)
[2016-09-17] MEDS: *HR* Heparin 5,000 UNIT/ML VIAL SQ SCH (05:06)
[2016-09-17] MEDS: *HR* HYDROcodone/Acet 5/325 mg TABLET PO PRN ×2 (05:11→15:06)
[2016-09-17 05:45] LABS: BUN/Creatinine Ratio 28 (6-26); Blood Urea Nitrogen 26 mg/dL (8-26); Calcium 9.3 mg/dL (8.6-10.8); Carbon Dioxide 24 mEq/L (19-29); Chloride 105 mEq/L (98-109); Glucose 160 mg/dL (70-99); Osmolality,Calculated 304 (280-300); Potassium 3.7 mEq/L (3.5-4.5); Sodium 143 mEq/L (136-145); eGFR For African Americans > 60 (> 60); eGFR For Non-African Americans > 60 (> 60)
[2016-09-17] MEDS: methylPREDNISolone 125 MG/2 ML VIAL IV SCH (08:14)
[2016-09-17] MEDS: (Umeclidinium Bromide [Incruse Ellipta] 62.5 MCG) IH SCH (08:16)
[2016-09-17] MEDS: Furosemide 40 MG/4 ML VIAL IVP SCH (08:17)
[2016-09-17] MEDS: Cyanocobalamin (B-12) 1,000 MCG TABLET PO SCH (08:20)
[2016-09-17] MEDS: Nicotine 21 MG PATCH.TD24 TD SCH (08:20)
[2016-09-17] MEDS: Aspirin 81 MG TAB.CHEW PO SCH (08:20)
[2016-09-17 11:55] VITALS: BP 104/80
--- NOTE | 2016-09-17 12:13 | Cardiology Progress Note ---
Date of Encounter: 09/17/16 Time of Encounter: 10:30 Assessment and Plan (1) Acute on chronic systolic (congestive) heart failure Current Visit: Yes Status: Acute Mr. Alexandre has diuresed 8.6L with lasix while on dopamine for inotropic support overnight. He drank two cans of soda which I have discouraged. Still however, he is feeling much better today. His breathing has improved as is his abdominal distention and lower extremity edema. His renal function remains normal. I recommend 40mg IV lasix tonight and restarting PO lasix tomorrow. His legs should be wrapped tonight. He should restart home dosing of 40mg BID. I suspect ADHF is largely due to dietary sodium indiscretion which we discussed. We will stop his dopamine. His right IV site does not demonstrate concerns for extravasation or peripheral ischemia. In addition, coreg was decreased during his hospital stay to accommodate for low blood pressures while diuresing him. I recommend increasing the dosing back to 6.25 mg twice daily prior to discharge provided blood pressures will tolerate this. Otherwise, I recommend following up as an outpatient. We will sign off. Please call with questions. Discussion w patient/family: Plan of care was discussed with the patient. Subjective Principal diagnosis: CHF Interval history: No acute overnight events. Patient feels better today. His breathing is much improved. Leg swelling is improved. He denies new symptoms. Objective Vital Signs, Last 4 Hours Pulse Resp BP Pulse Ox 09/17/16 11:00 70 16 104/80 90 L General: Conversant, No Apparent Distress HEENT: Mucus Membranes Moist Neck: No JVD Cardiac: Reg Rate and Rhythm, Normal S1 and S2, No Murmur Lungs: Other (breath sounds improved, no rales wheeze or rhonchi) Neuro: Alert and responsive, No focal deficits noted Abdomen: Soft, Other (bowel sounds are present) Extremities: Other (mild bilateral LE edema) Results 09/14/16 01:31 09/17/16 05:10 Lab Results 09/17/16 05:10 Sodium 143 Potassium 3.7 Chloride 105 Carbon Dioxide 24 BUN 26 Creatinine 0.94 Glucose 160 H Calcium 9.3 - EKG Interpretation EKG results cardiology: other (24h telemetry reviewed; sinus tachycardia, no concerning dysrhythmia) Consult Discharge Plan - Plan Referrals: Yareli Fish, [facility] [Primary Care Provider] -
--- NOTE | 2016-09-17 14:38 | Discharge Summary ---
Date of Encounter: 09/17/16 Time of Encounter: 14:33 - Discharge Diagnosis (1) Acute on chronic systolic (congestive) heart failure Priority: Primary Status: Acute Comments: Acute and chronic respiratory failure likely secondary to combination of acute COPD exacerbation probably from viral bronchitis with acute systolic CHF exacerbation (2) Chronic respiratory failure Priority: Primary Status: Chronic Comments: Patient has also history of a right small pleural effusion, had a thoracentesis back in August Qualifiers: Respiratory failure complication: hypoxia Qualified Code(s): J96.11 - Chronic respiratory failure with hypoxia (3) Cardiomyopathy Priority: Primary Status: Chronic Comments: Ejection fraction of 10-15% BNP was 3638 Qualifiers: Cardiomyopathy type: unspecified Qualified Code(s): I42.9 - Cardiomyopathy , unspecified (4) Acute renal injury Priority: Secondary Status: Acute (5) Hypotension Priority: Secondary Status: Acute Qualifiers: Hypotension type: unspecified hypotension type Qualified Code(s): I95.9 - Hypotension, unspecified (6) Pleural effusion Priority: Secondary Status: Chronic (7) Tobacco abuse Priority: Secondary Status: Chronic Comments: Smoking cessation counseling given for 5 minutes - Discharge Medications Prescriptions: Carvedilol [Coreg] 6.25 mg PO BID #60 tablet Furosemide [Lasix] 40 mg PO BIDDIURETIC #60 tablet Lisinopril 2.5 mg PO DAILY #30 tablet Potassium Chloride 10 meq PO DAILY 30 Days PredniSONE 10 mg PO DAILY 9 Days Home Medications: Albuterol Sulfate [Ventolin Hfa] 2 puff IH Q4H PRN #1 hfa.aer.ad 07/26/16 [Rx] Aspirin 81 mg PO DAILY tab.chew 07/26/16 [Rx] Umeclidinium [place] [Incruse Ellipta] 62.5 mcg IH DAILY #1 blst.w.dev 07/26/16 [Rx] Albuterol Neb [Proventil Neb] 2.5 mg IH Q6H PRN 09/13/16 [History] Lansoprazole [Prevacid] 30 mg PO DAILY 09/13/16 [History] Carvedilol [Coreg] 6.25 mg PO BID #60 tablet 09/17/16 [Rx] Furosemide [Lasix] 40 mg PO BIDDIURETIC #60 tablet 09/17/16 [Rx] Lisinopril 2.5 mg PO DAILY #30 tablet 09/17/16 [Rx] Potassium Chloride 10 meq PO DAILY 30 Days 09/17/16 [Rx] PredniSONE 10 mg PO DAILY 9 Days 09/17/16 [Rx] Allergies/Adverse Reactions: Allergies codeine Allergy (Verified 08/04/16 12:40) Redness of Skin Sulfa (Sulfonamide Antibiotics) Allergy (Verified 08/04/16 12:40) Blister Date of admission: 09/13/16 14:36 Primary care physician: Yareli Fish, Consults: 09/14/16 13:36 Consult to Nutrition [CONS] Routine Comment: Consulting Provider: NUTRITION Reason for Dietary Consult: Supplemental Nutrition - Patient Status Disposition: Home, Self-Care Condition: Good Overall status at discharge: patient is back to baseline - Discharge Instructions Follow Up With: Yareli Fish CNP [Primary Care Provider] - Additional Instructions: follow with primary care physician within 7 days, follow with cardiology in 2 weeks. Continue Lasix 40 mg twice a day, potassium 10 meq daily, prednisone taper, quit smoking - Diet and Activity Activity: increase activity as tolerated Diet: low salt diet Hospital course: Mr. Hardwick is a 66 year old male with a recent diagnosis of severe systolic CHF , HLD, HTN, 50+ pack year of smoking, known COPD, systolic heart failure first diagnosed at [place] with an Echocardiogram in Jul 2016 EF of 10-15%, global LV hypokinesis, moderate bilateral enlargement, mild-moderate MR and pulmonary HTN; recent cardiac catheterization showed normal coronaries. - He stated he has been compliant with his prescribed medications and restricting his fluid intake at home. - Trop x1 0.03, BNP 3638, CXR has been reviewed and does not demonstrate significant pulmonary edema. - Patient has clinical findings of chf exacerbation with 2+ bilateral LE edema, abdominal edema, JVD and significant orthopnea the patient was started on diureti dopamine drip was started. Was evaluated by the cardiology service. Solumedrol was started due to continued SOB and wheezing. The patient improved, more than 8 Lt were removed since admission. Is stable to be discharged on coreg and Lasix 40 mg BID. Time spent discussing smoking cessation with patient: 3 to 10 minutes - Time Spent with Patient Total time spent providing and/or coordinating discharge services: Greater than 30 minutes - Constitutional Vitals: Temp Pulse Resp BP Pulse Ox 97.5 F L 70 16 104/80 90 L 09/17/16 08:00 09/17/16 11:00 09/17/16 11:00 09/17/16 11:00 09/17/16 11:00 General appearance: Present: A&O X 3, no acute distress, answers questions appropriately - Head Head exam: Present: atraumatic, normocephalic - Eye Eye exam: Present: PERRL, conjuntiva pink, sclera anicteric Pupils: Present: PERRL - Neck Neck exam general surgery: Present: supple, trachea midline. Absent: lymphadenopathy - Respiratory Respiratory exam: Present: decreased breath sounds (fine bibasilar crackles), CTAB. Absent: accessory muscle use, rales, rhonchi, wheezes - Cardiovascular Cardiovascular exam: Present: RRR, +S1, +S2. Absent: diastolic murmur, gallop, rubs, systolic murmur - GI/Abdominal GI/Abdominal exam: Present: normal bowel sounds, soft, no peritoneal signs. Absent: distended, tenderness - Extremities Exam Extremities exam: Present: warm, radial pulses palpable and symetrical. Absent : calf tenderness, cyanotic, pedal edema - Neurological Exam Neurological exam: Present: CN II-XII intact, oriented X3, no focal deficits. Absent: pronater drift, facial droop, speech deficit - Skin Skin exam: Present: dry, intact
[2016-09-17] MEDS ORDERED: Furosemide 40 MG TABLET PO ONE (14:53)
[2016-09-17] MEDS ORDERED: Furosemide 40 MG/4 ML VIAL IVP ONE (17:00)
[2016-09-18] MEDS ORDERED: Furosemide 40 MG TABLET PO SCH (08:00)
== END 2016-09-17 15:27 | disposition home or self-care (01) | DRG 292 ==
LOC: EMEROO 11:33 → 2NENU 11:33 → SUATTDRO 14:36
PROVIDERS: ADMIT Internal Medicine; ATTEND Internal Medicine

== ENCOUNTER 2016-10-29 11:44 | Inpatient (IN) ==
[~2016-10-29 11:44] MED LIST: Aminoglycoside Consult 1 EACH MC ONE
--- NOTE | 2016-10-29 11:54 | Emergency Department Note ---
Disposition Clinical Impression: Elevated troponin, Congestive heart failure, CHF exacerbation, Hypotension, Chest pain, COPD (chronic obstructive pulmonary disease), Dyspnea, Sepsis, Pneumonia, Abnormal liver function tests, Epigastric abdominal pain, Elevated INR (international normalized ratio), Cardiomyopathy Disposition: Admitted As Inpatient Referrals: Josias Hurley DO [Primary Care Provider] - Forms: ED Satisfaction Letter General Adult HPI - General Chief complaint: ED Chest Pain Stated complaint: Chest pain, CHIRAG Time Seen by Provider: 10/29/16 11:53 Source: patient Limitations: no limitations - History of Present Illness HPI Narrative: 46-year-old male reports to the emergency department complaining of chest pain. He also describes abdominal pain. The patient has been diagnosed with a pulmonary embolus and reportedly takes Coumadin. He states he has pain when breathing in and out. There is no history of leg swelling or pain or coughing up blood. The patient states he had a heart catheter at [facility] about 3 months ago which was negative. He has no known coronary artery disease. The patient does have a history of COPD he wears oxygen at night only. The patient has had no vomiting or diarrhea no trauma no bloody stool or bleeding of any sort. There is no history of syncope. No rashes or fevers. There is been no confusion no trouble walking talking hearing seeing or speaking no acute back pain. There is been no weakness or numbness in the arms or legs or dysarthria. The patient points to his mid epigastrium when describing where his pain is. He also describes pain when breathing in and out. He has had pain for 2 days. Per his he has a low ejection fraction. He does have a history of CHF. Pain Scale: 10 - Related Data Home Medications Medication Instructions Recorded Confirmed Albuterol Neb [Proventil Neb] 2.5 mg IH Q6H PRN 09/13/16 09/13/16 Lansoprazole [Prevacid] 30 mg PO DAILY 09/13/16 09/13/16 Previous Rx's Medication Instructions Recorded Albuterol Sulfate [Ventolin Hfa] 2 puff IH Q4H PRN #1 hfa.aer.ad 07/26/16 Aspirin 81 mg PO DAILY tab.chew 07/26/16 Umeclidinium [place] [Incruse 62.5 mcg IH DAILY #1 blst.w.dev 07/26/16 Ellipta] Alprazolam [Xanax 0.25 MG Tablet] 0.25 mg PO BID PRN #30 tablet 09/17/16 Carvedilol [Coreg] 6.25 mg PO BID #60 tablet 09/17/16 Furosemide [Lasix] 40 mg PO BIDDIURETIC #60 tablet 09/17/16 Lactose-Reduced Food [Ensure 1 bottle PO BID #60 can 09/17/16 Original] Lisinopril 2.5 mg PO DAILY #30 tablet 09/17/16 Potassium Chloride 10 meq PO DAILY 30 Days 09/17/16 PredniSONE 10 mg PO DAILY 9 Days 09/17/16 Allergies Allergy/AdvReac Type Severity Reaction Status Date / Time codeine Allergy Redness of Verified 08/04/16 12:40 Skin Sulfa (Sulfonamide Allergy Blister Verified 08/04/16 12:40 Antibiotics) All systems ED: reviewed and negative except as stated. Past Medical History - Past Medical History Medical history: Reports: arthritis, cardiomyopathy, CHF, COPD, coronary artery disease, other Surgical history: Reports: orthopedic, other Psychiatric history: Reports: no psych history - Social History Smoking Status: Former smoker Smokeless Tobacco Status: No Alcohol use: Reports: none Drug use: Reports: none Physical Exam - General Limitations: no limitations General appearance: alert, anxious - Head Head exam: atraumatic, normocephalic, normal inspection - Eye Eye exam: Present: normal appearance, PERRL, EOMI. Absent: scleral icterus, conjunctival injection, miosis, mydriasis - ENT ENT exam: normal exam, normal oropharynx, mucous membranes moist, TM's normal bilaterally, normal external ear exam - Neck Neck exam: Present: normal inspection, full ROM, trachea midline - Chest Chest inspection: Present: normal inspection, symmetric chest wall rise. Absent : tenderness - Respiratory Respiratory exam: Present: prolonged expiratory phase. Absent: respiratory distress - Cardiovascular Cardiovascular exam: Present: normal rhythm, tachycardia - Abdominal Exam Abdominal exam: Present: soft, tenderness, normal bowel sounds. Absent: distention, guarding, rebound, rigidity, trauma, Sapp's sign, Rovsing's sign, tenderness at McBurney's Point, pulsatile mass Abdominal tenderness: Present: epigastrium, moderate - Extremities Exam Extremities exam: Present: normal inspection, full ROM, pedal edema. Absent: tenderness, normal capillary refill, joint swelling, calf tenderness - Expanded Lower Extremity Exam Lower leg exam: Absent: Homans' sign Neurovascular/Tendon exam: Absent: pulse deficit, motor deficit, sensory deficit , tendon deficit, extremity cold to touch, pallor - Back Exam Back exam: Present: normal inspection, full ROM. Absent: tenderness, CVA tenderness (R), CVA tenderness (L), vertebral tenderness - Neurological Exam Neurological exam: Present: alert, oriented X3, CN II-XII intact. Absent: motor sensory deficit - Psychiatric Psychiatric exam: Present: anxious - Skin Skin exam: Present: warm, dry, intact, normal color. Absent: rash, cyanosis, diaphoresis, erythema, pallor, mottled Course Vital Signs Temperature 97.8 F 10/29/16 11:45 Pulse Rate 120 10/29/16 11:45 Respiratory Rate 18 10/29/16 11:45 Blood Pressure 89/69 10/29/16 11:45 O2 Sat by Pulse Oximetry 99 10/29/16 11:45 Temperature 97.8 F 10/29/16 11:45 Pulse Rate 121 10/29/16 13:33 Respiratory Rate 26 10/29/16 13:33 Blood Pressure 115/79 10/29/16 13:33 O2 Sat by Pulse Oximetry 98 10/29/16 13:33 Oxygen Delivery Oxygen Delivery Nasal Cannula Medical Decision Making - [facility] Narrative Medical decision making narrative: The patient is describing chest pain associated with breathing in and out, he does have an elevated troponin. He has a history of PE and is anticoagulated, he is supratherapeutic on Coumadin. The patient does have evidence of CHF via laboratory studies and chest x-ray, he does have a high lactic acid and pneumonia is likely based on his symptomatology and abnormal x-ray findings an report. Aspirin was ordered. The patient meets sepsis criteria, he is currently stable. He is not requiring pressors we have given him gentle fluid hydration based on his known heart failure, and his blood pressure is climbing, he is currently 1:15 systolic. Blood cultures were ordered IV antibiotics were ordered. The patient's urinalysis is pending. Aspirin was given. A CTA chest and CT abdomen was ordered as a precaution based on the patient's abdominal pain and elevated bilirubin. His lipase is negative. I have reviewed the case with the hospitalist on-call Dr. Tariq, she recommends a Xopenex neb and ICU admission. She agrees with the CT orders. The patient is currently stable and appears to have improved with the low-grade fluid bolus. Cautious hydration will be required in this patient who meets sepsis criteria secondary to heart failure. Cautious use of nitroglycerin and Lasix may also be required. - Lab Data Lab results reviewed: Yes I reviewed the patient's lab results. Result diagrams: 10/29/16 12:07 10/29/16 12:07 Lab Results 10/29/16 10/29/16 10/29/16 Range/Units 12:07 12:07 12:07 WBC (4.3-11.1) K/mcL RBC (4.19-5.50) M/mcL Hgb (12.9-16.9) g/dL Hct (37.5-50.1) % MCV (83.0-100.0) fL MCH (28.0-33.3) pg MCHC (31.6-35.5) g/dL RDW (11.5-14.5) % Plt Count (140-400) K/mcL MPV (9.4-12.4) fL Immature Gran % (0-4) % Seg Neutrophils % % Lymphocytes % % Monocytes % % Eosinophils % % Basophils % % Neutrophils # (1.6-8.9) K/mcL Lymphocytes # (0.6-4.6) K/mcL Monocytes # (0.0-1.3) K/mcL Eosinophils # (0.0-0.6) K/mcL Basophils # (0.0-0.2) K/mcL PT 66.1 H* D (9.4-12.1) Seconds INR 5.8 H* D APTT 41.1 H (26.0-36.0) Seconds Sodium (136-145) mEq/L Potassium (3.5-4.5) mEq/L Chloride (98-109) mEq/L Carbon Dioxide (19-29) mEq/L BUN (8-26) mg/dL Creatinine (0.72-1.25) mg/dL Est GFR ( Amer) (> 60) Est GFR (Non-Af Amer) (> 60) BUN/Creatinine Ratio (6-26) Glucose (70-99) mg/dL Calculated Osmolality (280-300) Lactic Acid 4.6 H* (0.5-2.2) mmol/L Calcium (8.6-10.8) mg/dL Total Bilirubin 1.7 H (0.2-1.2) mg/dL Direct Bilirubin 0.9 H (0.0-0.5) mg/dL Indirect Bilirubin 0.8 (0.0-1.2) mg/dL AST 48 H (5-34) Units/L ALT 110 H (0-55) Units/L Alkaline Phosphatase 113 (38-126) Units/L Troponin I (0-0.03) ng/mL C-Reactive Protein 31 H (Less than 5) mg/L B-Natriuretic Peptide (0-100) pg/mL Serum Total Protein 6.4 (6.0-8.3) g/dL Albumin 3.0 L (3.5-5.0) g/dL Globulin 3.4 (2.4-3.5) g/dL Albumin/Globulin Ratio 0.9 L (1.1-2.2) Lipase 46 (8-78) Units/L Urine Color (Yellow) Urine Clarity (Clear) Urine pH (5.0-8.0) pH Units Ur Specific Nada (1.010-1.025) Urine Protein (Neg-Trace) mg/dL Urine Glucose (UA) (Normal) mg/dL Urine Ketones (Negative) mg/dL Urine Blood (Negative) Urine Nitrite (Negative) Urine Bilirubin (Negative) Urine Urobilinogen (Normal) mg/dL Ur Leukocyte Esterase (Negative) Urine Microscopic RBC (0-3) per hpf Urine Microscopic WBC (0-3) per hpf Ur Squamous Epith Cells (None-Few) per lpf Urine Bacteria (None-Few) per hpf Ur Culture Indicated? (NO) 10/29/16 10/29/16 10/29/16 Range/Units 12:07 12:07 12:07 WBC 11.4 H (4.3-11.1) K/mcL RBC 5.02 (4.19-5.50) M/mcL Hgb 15.4 (12.9-16.9) g/dL Hct 46.9 (37.5-50.1) % MCV 93.4 (83.0-100.0) fL MCH 30.7 (28.0-33.3) pg MCHC 32.8 (31.6-35.5) g/dL RDW 19.2 H (11.5-14.5) % Plt Count 363 (140-400) K/mcL MPV 10.2 (9.4-12.4) fL Immature Gran % 0.3 (0-4) % Seg Neutrophils % 75.1 % Lymphocytes % 18.2 % Monocytes % 5.0 % Eosinophils % 0.4 % Basophils % 1.0 % Neutrophils # 8.6 (1.6-8.9) K/mcL Lymphocytes # 2.1 (0.6-4.6) K/mcL Monocytes # 0.6 (0.0-1.3) K/mcL Eosinophils # 0.1 (0.0-0.6) K/mcL Basophils # 0.1 (0.0-0.2) K/mcL PT (9.4-12.1) Seconds INR APTT (26.0-36.0) Seconds Sodium 131 L (136-145) mEq/L Potassium 4.7 H (3.5-4.5) mEq/L Chloride 93 L (98-109) mEq/L Carbon Dioxide 23 (19-29) mEq/L BUN 32 H (8-26) mg/dL Creatinine 1.15 (0.72-1.25) mg/dL Est GFR ( Amer) > 60 (> 60) Est GFR (Non-Af Amer) > 60 (> 60) BUN/Creatinine Ratio 28 H (6-26) Glucose 129 H (70-99) mg/dL Calculated Osmolality 281 (280-300) Lactic Acid (0.5-2.2) mmol/L Calcium 9.2 (8.6-10.8) mg/dL Total Bilirubin (0.2-1.2) mg/dL Direct Bilirubin (0.0-0.5) mg/dL Indirect Bilirubin (0.0-1.2) mg/dL AST (5-34) Units/L ALT (0-55) Units/L Alkaline Phosphatase (38-126) Units/L Troponin I (0-0.03) ng/mL C-Reactive Protein (Less than 5) mg/L B-Natriuretic Peptide 4775 H (0-100) pg/mL Serum Total Protein (6.0-8.3) g/dL Albumin (3.5-5.0) g/dL Globulin (2.4-3.5) g/dL Albumin/Globulin Ratio (1.1-2.2) Lipase (8-78) Units/L Urine Color (Yellow) Urine Clarity (Clear) Urine pH (5.0-8.0) pH Units Ur Specific Nada (1.010-1.025) Urine Protein (Neg-Trace) mg/dL Urine Glucose (UA) (Normal) mg/dL Urine Ketones (Negative) mg/dL Urine Blood (Negative) Urine Nitrite (Negative) Urine Bilirubin (Negative) Urine Urobilinogen (Normal) mg/dL Ur Leukocyte Esterase (Negative) Urine Microscopic RBC (0-3) per hpf Urine Microscopic WBC (0-3) per hpf Ur Squamous Epith Cells (None-Few) per lpf Urine Bacteria (None-Few) per hpf Ur Culture Indicated? (NO) 10/29/16 10/29/16 Range/Units 12:07 13:13 WBC (4.3-11.1) K/mcL RBC (4.19-5.50) M/mcL Hgb (12.9-16.9) g/dL Hct (37.5-50.1) % MCV (83.0-100.0) fL MCH (28.0-33.3) pg MCHC (31.6-35.5) g/dL RDW (11.5-14.5) % Plt Count (140-400) K/mcL MPV (9.4-12.4) fL Immature Gran % (0-4) % Seg Neutrophils % % Lymphocytes % % Monocytes % % Eosinophils % % Basophils % % Neutrophils # (1.6-8.9) K/mcL Lymphocytes # (0.6-4.6) K/mcL Monocytes # (0.0-1.3) K/mcL Eosinophils # (0.0-0.6) K/mcL Basophils # (0.0-0.2) K/mcL PT (9.4-12.1) Seconds INR APTT (26.0-36.0) Seconds Sodium (136-145) mEq/L Potassium (3.5-4.5) mEq/L Chloride (98-109) mEq/L Carbon Dioxide (19-29) mEq/L BUN (8-26) mg/dL Creatinine (0.72-1.25) mg/dL Est GFR ( Amer) (> 60) Est GFR (Non-Af Amer) (> 60) BUN/Creatinine Ratio (6-26) Glucose (70-99) mg/dL Calculated Osmolality (280-300) Lactic Acid (0.5-2.2) mmol/L Calcium (8.6-10.8) mg/dL Total Bilirubin (0.2-1.2) mg/dL Direct Bilirubin (0.0-0.5) mg/dL Indirect Bilirubin (0.0-1.2) mg/dL AST (5-34) Units/L ALT (0-55) Units/L Alkaline Phosphatase (38-126) Units/L Troponin I 0.12 H* (0-0.03) ng/mL C-Reactive Protein (Less than 5) mg/L B-Natriuretic Peptide (0-100) pg/mL Serum Total Protein (6.0-8.3) g/dL Albumin (3.5-5.0) g/dL Globulin (2.4-3.5) g/dL Albumin/Globulin Ratio (1.1-2.2) Lipase (8-78) Units/L Urine Color Dark Yellow (Yellow) Urine Clarity Cloudy A (Clear) Urine pH 5.0 (5.0-8.0) pH Units Ur Specific Nada 1.021 (1.010-1.025) Urine Protein 30 H (Neg-Trace) mg/dL Urine Glucose (UA) Normal (Normal) mg/dL Urine Ketones Negative (Negative) mg/dL Urine Blood Negative (Negative) Urine Nitrite Negative (Negative) Urine Bilirubin Small H (Negative) Urine Urobilinogen Normal (Normal) mg/dL Ur Leukocyte Esterase Small H (Negative) Urine Microscopic RBC 3-5 H (0-3) per hpf Urine Microscopic WBC 0-3 (0-3) per hpf Ur Squamous Epith Cells Many H (None-Few) per lpf Urine Bacteria None Seen (None-Few) per hpf Ur Culture Indicated? YES A (NO) - Radiology Data Radiology results reviewed: Yes I reviewed the patient's radiology results.
[2016-10-29] MEDS ORDERED: 0.9 % Sodium Chloride 1,000 ML IVC ONE (12:07)
[2016-10-29] MEDS ORDERED: *HR* HYDROmorphone (PF) 1 MG/ML SYRINGE IVP ONE (12:08)
[2016-10-29] MEDS ORDERED: Ondansetron 4 MG/2 ML VIAL IVP ONE (12:08)
[2016-10-29 12:13] LABS: Basophils # 0.1 K/mcL (0.0-0.2); Eosinophils # 0.1 K/mcL (0.0-0.6); Eosinophils % 0.4 %; Hematocrit 46.9 % (37.5-50.1); Hemoglobin 15.4 g/dL (12.9-16.9); Immature Granulocytes % 0.3 % (0-4); Lymphocytes # 2.1 K/mcL (0.6-4.6); Lymphocytes % 18.2 %; Mean Corpuscular HGB Conc 32.8 g/dL (31.6-35.5); Mean Corpuscular Hemoglobin 30.7 pg (28.0-33.3); Mean Corpuscular Volume 93.4 fL (83.0-100.0); Mean Platelet Volume 10.2 fL (9.4-12.4); Monocytes # 0.6 K/mcL (0.0-1.3); Neutrophils # 8.6 K/mcL (1.6-8.9); Platelet Count 363 K/mcL (140-400); Red Blood Count 5.02 M/mcL (4.19-5.50); Red Cell Distribution Width 19.2 % (11.5-14.5); Segmented Neutrophils % 75.1 %
[2016-10-29 12:21] LABS: Activated Partial Thrombo Time 41.1 Seconds (26.0-36.0)
[2016-10-29] MEDS ORDERED: 0.9 % Sodium Chloride 1,000 ML ONE (12:22)
[2016-10-29 12:26] LABS: BUN/Creatinine Ratio 28 (6-26); Blood Urea Nitrogen 32 mg/dL (8-26); Calcium 9.2 mg/dL (8.6-10.8); Carbon Dioxide 23 mEq/L (19-29); Chloride 93 mEq/L (98-109); Glucose 129 mg/dL (70-99); Osmolality,Calculated 281 (280-300); Potassium 4.7 mEq/L (3.5-4.5); Sodium 131 mEq/L (136-145); eGFR For African Americans > 60 (> 60); eGFR For Non-African Americans > 60 (> 60)
[2016-10-29 12:29] LABS: Albumin/Globulin Ratio 0.9 (1.1-2.2); Bilirubin,Direct 0.9 mg/dL (0.0-0.5); Bilirubin,Indirect 0.8 mg/dL (0.0-1.2); Bilirubin,Total 1.7 mg/dL (0.2-1.2); Globulin 3.4 g/dL (2.4-3.5); Total Protein 6.4 g/dL (6.0-8.3)
[2016-10-29 12:33] LABS: INR 5.8; Prothrombin Time 66.1 Seconds (9.4-12.1)
[2016-10-29] MEDS ORDERED: Aspirin 325 MG TABLET PO ONE (12:42)
[2016-10-29] MEDS ORDERED: Levofloxacin 750 MG/150 ML 750 MG/150 ML BAG IVPB ONE (13:21)
[2016-10-29 13:25] LABS: Bilirubin,Urine Small (Negative); Blood,Urine Negative (Negative); Clarity,Urine Cloudy (Clear); Color,Urine Dark Yellow (Yellow); Glucose,Urine (UA) Normal (Normal); Ketones,Urine Negative (Negative); Leukocyte Esterase,Urine Small (Negative); Nitrite,Urine Negative (Negative); Protein,Urine 30 mg/dL (Neg-Trace); Specific Gravity,Urine 1.021 (1.010-1.025); Urobilinogen,Urine Normal (Normal)
[2016-10-29 13:27] LABS: Bacteria,Urine None Seen per hpf (None-Few); Squamous Epithelial Cell,Urine Many per lpf (None-Few); WBC,Urine 0-3 per hpf (0-3)
[2016-10-29] MEDS ORDERED: Levalbuterol Neb 1.25 MG/3 ML IH ONE (13:35)
[2016-10-29] MEDS ORDERED: *HR* HYDROmorphone (PF) 1 MG/ML SYRINGE IVP PRN (14:43)
[2016-10-29] MEDS ORDERED: Acetaminophen 325 MG TABLET PO PRN (14:43)
[2016-10-29] MEDS ORDERED: Ondansetron 4 MG/2 ML VIAL IVP PRN (14:43)
[2016-10-29] MEDS ORDERED: Naloxone 0.4 MG/ML INJ IVP PRN (14:43)
[2016-10-29 15:22] LABS: Amphetamine Screen,Urine Negative ng/mL (Cutoff=1000); Barbiturate Screen,Urine Negative ng/mL (Cutoff=200); Benzodiazepines Screen,Urine Positive ng/mL (Cutoff=200); Cannabinoid Screen,Urine Negative ng/mL (Cutoff = 50); Cocaine Screen,Urine Negative ng/mL (Cutoff= 300); Opiate Screen,Urine Negative ng/mL (Cutoff=300); Phencyclidine Screen,Urine Negative ng/mL (Cutoff=25)
[2016-10-29] MEDS ORDERED: Levalbuterol Neb 1.25 MG/3 ML IH PRN (15:42)
[2016-10-29] MEDS: Pantoprazole 40 MG VIAL IVPB SCH (15:47)
[2016-10-29] MEDS: *HR* HYDROmorphone (PF) 1 MG/ML SYRINGE IVP PRN (15:48)
[2016-10-29] MEDS: *HR* LORazepam 2 MG/ML VIAL IVP PRN ×2 (15:48→21:04)
[2016-10-29] MEDS: Ipratropium Neb 0.5 MG NEBULIZER IH SCH ×3 (15:55→19:57)
[2016-10-29] MEDS: Budesonide Neb 0.5 MG/2 ML IH SCH ×2 (15:55→19:57)
[2016-10-29] MEDS ORDERED: Perflutren Lipid Microsphere 1.3 ML in 0.9 % Sodium Chloride 8.7 ML IVP ONE (15:56)
[2016-10-29] MEDS: Levalbuterol Neb 1.25 MG/3 ML IH SCH ×2 (15:57→19:57)
[2016-10-29] MEDS ORDERED: Perflutren Lipid Microsphere 2 ML VIAL ONE (16:02)
--- NOTE | 2016-10-29 16:20 | Internal Med History&Physical ---
Date of Encounter: 10/29/16 Time of Encounter: 15:00 Assessment and Plan (1) Acute and chronic respiratory failure Current visit: Yes Status: Acute multifactorial from sepsis, PNA, and COPD exacerbation in the setting of severe systolic heart failure and chronic bilateral pleural effusions. Patient is a very poor historian. He reports a 3 day history of shortness of breath associated with associated fevers (temp of 101 at home), cough of productive sputum and chest pain. Chronic bilateral lower extremity edema that has improved significantly in the past few weeks. In ED, patient was tachycardic and tachypneic. SaO2 100% on 2L NC. He received 1L IV NS, IV levaquin and xopenex nebs. Stat CTA abdomen and pelvis revealed a LV thrombus. CT chest showed bilateral pleural effusion R>L. Echocardiogram ordered stat. Upon reviewing [facility] records, his PCP documents a diagnoses of large 4 cm x 3 cm LV thrombus on 09/26/16 and pt was started on coumadin for that. His coumadin was increased 4 days ago due to sub-therapeutic INR (INR 2.2) . IV antibiotics. xopenex/atrovent nebs q4 hr budesonide nebs q12hr BIPAP fluid restriction ABG consult critical care/pulmonology. consult cardiology Prior studies. 09/26/16: [place] echocardiogram LVEF 15%, large LV thrombus 4cm x 3 cm, moderate TR, RV systolic pressure 45 mmHg, signs consistent with increased right atrial pressure. 07/25/16: echocardiogram shows LVEF 10-15%, moderately dilated LV, severe global LV systolic dysfunction. 09/02/16: PFTs reveal moderate obstructive ventilatory impairment with moderate gas diffusion exchange abnormality,and decreased total lung capacity. critical care time spent 45 min. Qualifiers: Respiratory failure complication: hypoxia Qualified Code(s): J96.21 - Acute and chronic respiratory failure with hypoxia (2) Sepsis Current visit: Yes Status: Acute source is PNA and possible UTI plan as above. Qualifiers: Sepsis type: sepsis due to unspecified organism Qualified Code(s): A41.9 - Sepsis, unspecified organism (3) Pneumonia Current visit: Yes Status: Acute bacterial pna plan as above Qualifiers: Pneumonia type: due to unspecified organism Laterality: bilateral Lung location: lower lobe of lung Qualified Code(s): J18.9 - Pneumonia, unspecified organism (4) Acute exacerbation of chronic obstructive airways disease Current visit: No Status: Chronic plan as above. (5) Acute on chronic systolic (congestive) heart failure Current visit: No Status: Acute Right and left systolic heart failure. CT abdomen shows moderate ascites, hepatic steatosis, low bladder wall thickening with pericholecystic fluid, plan as above. (6) LV (left ventricular) mural thrombus Current visit: Yes Status: Chronic 09/26/16: [place] echocardiogram LVEF 15%, large LV thrombus 4cm x 3 cm, moderate TR, RV systolic pressure 45 mmHg, signs consistent with increased right atrial pressure. His coumadin was increased 4 days ago due to sub-therapeutic INR (INR 2.2). (7) Elevated troponin Current visit: Yes Status: Acute troponin at 0.12. EKG showed ST HR 116, no new acute EKG changes. serial troponins. likely supply-demand mismatch. (8) Pleural effusion Current visit: Yes Status: Chronic chronic bilateral pleural effusion. (9) Supratherapeutic INR Current visit: Yes Status: Acute INR 5.8. holding coumadin. (10) Moderate tricuspid regurgitation Current visit: Yes Status: Acute plan as above. (11) Abnormal liver function tests Current visit: Yes Status: Acute secondary to right-sided heart failure. (12) Abnormal urinalysis Current visit: Yes Status: Acute suspected UTI. f/u UCx (13) Tobacco abuse Current visit: No Status: Chronic nicotine patch. Internal Medicine - H&P: HPI Chief complaint: Shortness of breath, cough and fever for 3 days. Admitted From: Home Plans for Post Hospital Care: Home History of present illness: Mr. Hardwick is a 66 year old male with past medical history of severe systolic heart failure LVEF 15%, COPD with centrilobular emphysema, noncompliant with oxygen at home, and HTN. Patient is a very poor historian. He reports a 3 day history of shortness of breath associated with associated fevers (temp of 101 at home), cough of productive sputum and chest pain. No hemoptysis. Mild epigastric pain. No bleeding. No syncope. No focal deficits. No headache. Chronic bilateral lower extremity edema that has improved significantly in the past few weeks.In ED, patient was tachycardic and tachypneic. SaO2 100% on 2L NC. He received 1L IV NS, IV levaquin and xopenex nebs. Stat CTA abdomen and pelvis revealed a LV thrombus. CT chest showed bilateral pleural effusion R>L. Echocardiogram ordered stat. Upon reviewing [facility] records, his PCP documents a diagnoses of large 4 cm x 3 cm LV thrombus on 09/26/16 and pt was started on coumadin for that. His coumadin was increased 4 days ago due to sub-therapeutic INR (INR 2.2). Past Med Surg Social Fam HX - Past Medical History Medical history: arthritis, cardiomyopathy, CHF, COPD, coronary artery disease, other Psychiatric history: no psych history - Past Surgical History Surgical History: orthopedic, other - Social History Smoking Status: Former smoker Smokeless Tobacco Status: No Alcohol use: none Drug use: none - Family History Father Hx Family Cardiac Disorders: Yes Internal Medicine - H&P: Meds Albuterol Sulfate [Ventolin Hfa] 2 puff IH Q4H PRN #1 hfa.aer.ad 07/26/16 [Rx] Umeclidinium [place] [Incruse Ellipta] 62.5 mcg IH DAILY #1 blst.w.dev 07/26/16 [Rx] Albuterol Neb [Proventil Neb] 2.5 mg IH Q6H PRN 09/13/16 [History] Carvedilol [Coreg] 6.25 mg PO BID #60 tablet 09/17/16 [Rx] Lactose-Reduced Food [Ensure Original] 1 bottle PO BID #60 can 09/17/16 [Rx] Lisinopril 2.5 mg PO DAILY #30 tablet 09/17/16 [Rx] Allopurinol [Zyloprim 100 MG] 100 mg PO DAILY 10/29/16 [History] Alprazolam [Xanax 0.25 MG Tablet] 0.25 mg PO TID PRN 10/29/16 [History] Bumetanide [Bumex] 1 mg PO BID 10/29/16 [History] Omeprazole [PriLOSEC] 20 mg PO DAILY 10/29/16 [History] Warfarin [Coumadin] 5 mg PO MOWEFR 10/29/16 [History] Warfarin [Coumadin] 7.5 mg PO SUTUTHSA 10/29/16 [History] Allergies codeine Allergy (Verified 10/29/16 14:46) Rash Sulfa (Sulfonamide Antibiotics) Allergy (Verified 10/29/16 14:45) Hives All Systems PM: A 10-system review of systems was performed and is negative for pertinent findings except as documented above in the HPI. - Constitutional Constitutional: chills, fever(s), lethargy, malaise, weakness, weight loss, no falls, no night sweats, no weight gain - EENT Eyes: no blurry vision, no change in vision, no decreased night vision Ears: no ear discharge, no ear pain, no tinnitus Nose, mouth and throat: no bleeding gums, no dysphagia, no epistaxis - Cardiovascular Cardiovascular ROS IM: chest pain, diaphoresis, dyspnea, dyspnea on exertion, edema, orthopnea, paroxysmal nocturnal dyspnea, no lightheadedness, no syncope - Respiratory Respiratory: cough, dyspnea, dyspnea on exertion, wheezing, excessive phlegm production, change in phlegm color, no hemoptysis, no snoring, no stridor - Gastrointestinal Gastrointestinal: abdominal pain, no constipation, no heartburn, no nausea, no vomiting - Genitourinary Genitourinary ROS male: no difficulty urinating, no urinary frequency - Integumentary Integumentary IM: no rash - Psychiatric Psychiatric: confusion, no anxiety, no hallucinations, no suicidal ideation - Endocrine Endocrine IM: no polydipsia, no polyphagia, no polyuria - Hematologic/Lymphatic Hematologic/Lymphatic: no easy bleeding, no easy bruising - Allergic/Immunologic Allergic/Immunologic: no tongue swelling, no throat swelling, no lip swelling - Constitutional Vitals: Temp Pulse Resp BP Pulse Ox 97.4 F L 105 16 84/74 98 10/29/16 15:07 10/29/16 15:07 10/29/16 15:07 10/29/16 15:07 10/29/16 15:07 General appearance: Present: cooperative, pleasant, severe distress, answers questions appropriately Exam: Speak short sentences. - Eye Eye exam: Present: PERRL, sclera anicteric - Neck Neck exam general surgery: Present: supple, trachea midline. Absent: lymphadenopathy - Respiratory Respiratory exam: Present: decreased breath sounds (at right lower lung) - GI/Abdominal GI/Abdominal exam: Present: normal bowel sounds, soft. Absent: distended, tenderness - Neurological Exam Neurological exam: Present: alert, oriented X3, no focal deficits. Absent: facial droop, speech deficit - Skin Skin exam: Present: dry. Absent: normal color (bluish discoloration of feet.) Internal Med - H&P Results - Labs CBC & Chem 7: 10/29/16 12:07 10/29/16 12:07
[2016-10-29] MEDS ORDERED: Vancomycin 1,500 MG in D5% in Water 250 ML IVPB ONE (17:00)
[2016-10-29] MEDS: Nicotine 7 MG PATCH.TD24 TD SCH (18:38)
[2016-10-29] MEDS ORDERED: Furosemide 40 MG/4 ML VIAL IVP ONE (19:53)
[2016-10-29 22:35] LABS: VBG HCO3 24.8 mEq/L (21-27); VBG PH 7.34 pH Units (7.32-7.42)
[2016-10-29 22:40] LABS: Ionized Calcium 1.03 mmol/L (1.15-1.35)
[2016-10-29 22:46] LABS: Magnesium 0.9 mg/dL (1.6-2.6); Phosphorous 2.6 mg/dL (2.3-4.7)
[2016-10-30] MEDS: Levalbuterol Neb 1.25 MG/3 ML IH SCH ×6 (01:13→20:55)
[2016-10-30] MEDS: Ipratropium Neb 0.5 MG NEBULIZER IH SCH ×6 (01:13→20:55)
[2016-10-30 03:11] LABS: Basophils # 0.1 K/mcL (0.0-0.2); Basophils % 0.7 %; Eosinophils % 0.2 %; Hematocrit 47.2 % (37.5-50.1); Hemoglobin 15.3 g/dL (12.9-16.9); Immature Granulocytes % 0.9 % (0-4); Lymphocytes % 17.9 %; Mean Corpuscular HGB Conc 32.4 g/dL (31.6-35.5); Mean Corpuscular Hemoglobin 30.1 pg (28.0-33.3); Mean Corpuscular Volume 92.9 fL (83.0-100.0); Mean Platelet Volume 9.9 fL (9.4-12.4); Monocytes # 0.8 K/mcL (0.0-1.3); Monocytes % 7.1 %; Neutrophils # 8.2 K/mcL (1.6-8.9); Platelet Count 347 K/mcL (140-400); Red Blood Count 5.08 M/mcL (4.19-5.50); Red Cell Distribution Width 18.9 % (11.5-14.5); Segmented Neutrophils % 73.2 %
[2016-10-30 03:16] LABS: Activated Partial Thrombo Time 43.1 Seconds (26.0-36.0)
[2016-10-30 03:25] LABS: Alanine Aminotransferase 104 Units/L (0-55); Albumin 3.1 g/dL (3.5-5.0); Albumin/Globulin Ratio 0.9 (1.1-2.2); Alkaline Phosphatase 106 Units/L (38-126); Aspartate Amino Transferase 57 Units/L (5-34); BUN/Creatinine Ratio 26 (6-26); Bilirubin,Direct 1.1 mg/dL (0.0-0.5); Bilirubin,Indirect 0.9 mg/dL (0.0-1.2); Blood Urea Nitrogen 35 mg/dL (8-26); Carbon Dioxide 18 mEq/L (19-29); Chloride 94 mEq/L (98-109); Globulin 3.5 g/dL (2.4-3.5); Glucose 129 mg/dL (70-99); Magnesium 2.1 mg/dL (1.6-2.6); Osmolality,Calculated 274 (280-300); Sodium 127 mEq/L (136-145); Total Protein 6.6 g/dL (6.0-8.3); eGFR For African Americans > 60 (> 60); eGFR For Non-African Americans 54 (> 60)
[2016-10-30 03:27] LABS: Prothrombin Time 92.8 Seconds (9.4-12.1)
[2016-10-30 03:28] LABS: INR 8.1; Phosphorous 5.1 mg/dL (2.3-4.7)
[2016-10-30] MEDS: *HR* HYDROmorphone (PF) 1 MG/ML SYRINGE IVP PRN ×3 (03:51→19:23)
[2016-10-30 03:55] LABS: Fibrinogen 233 mg/dL (169-393)
[2016-10-30 03:58] LABS: D-Dimer 6513 ng/mLFEU (0-500)
[2016-10-30] MEDS: Bumetanide 1 MG/4 ML VIAL IVP SCH ×2 (03:58→06:42)
[2016-10-30] MEDS ORDERED: Vancomycin 1,250 MG in D5% in Water 250 ML IVPB SCH (06:00)
[2016-10-30] MEDS: Budesonide Neb 0.5 MG/2 ML IH SCH ×2 (07:38→20:55)
[2016-10-30] MEDS ORDERED: Furosemide 40 MG/4 ML VIAL IVP SCH (09:00)
[2016-10-30] MEDS: *HR* LORazepam 2 MG/ML VIAL IVP PRN ×3 (09:05→19:23)
[2016-10-30 09:06] LABS: Hepatitis A Antibody IgM Nonreactive (Nonreactive); Hepatitis B Core IgM Nonreactive (Nonreactive); Hepatitis B Surface Antigen Nonreactive (Nonreactive); Hepatitis C Virus Antibody Nonreactive (Nonreactive)
--- NOTE | 2016-10-30 09:09 | ECHO - Doppler Report ---
Echo with Saline and Imaging Enhancement Agent Name: Jason Hardwick Date of Study: 10/29/2016 Date: 1950 Ht: 69.0 in Medical Record#: [id number] Age: 66 Wt: 152.0 lb Gender: Male BSA: 1.84 Order #: [id number] Location: [facility] Room #: 08 Reading Physician: Bruce Castillo DO, FACLiza, ALLYSON WOODS Mixer Slagman: Alexus Harrell RVT, RDCS Ordering Physician: Vivian Jackson MD Primary Physician: Josias Hurley DO Indications: LV thrombus in CTA abdomen Impressions: LVEF 15-20%. Moderately dilated left ventricle. Severe global left ventricular systolic dysfunction. Indeterminate diastolic function. Extensive left ventricular thrombus extending from the mid to apical anterior and apex segments of the LV. Moderately dilated and hypokinetic right ventricle. Moderately biatrial enlargement. Mild mitral regurgitation. Moderate tricuspid regurgitation. Mild pulmonary hypertension. Estimated RVSP 37-42 mmHg, including an estimated RA pressure of 10-15 mmHg. ICU notified by Dr. Leavitt 10/29/2015. Cardiology rounding team also aware. Left Ventricular Wall Motion: Rest Echo Findings The apex, apical inferior, mid inferior, basal inferior, apical anterior, mid anterior, basal anterior, apical septal, mid inferior septal, basal inferior septal, apical lateral, mid anterior lateral, basal anterior lateral, mid anterior septal, mid inferior lateral, basal anterior septal and basal inferior lateral sierra were hypokinetic. Findings: Study Quality * Technically adequate exam. ECG Findings * Sinus tachycardia. Left Ventricle * LVEF 15-20%. * Moderately dilated left ventricle. * Severe global left ventricular systolic dysfunction. * Indeterminate diastolic function. * Extensive left ventricular thrombus extending from the mid to apical anterior and apex segments of the LV. Right Ventricle * Moderately dilated and hypokinetic right ventricle. Left Atrium * Moderately dilated left atrium. Right Atrium * Moderately dilated right atrium. Interatrial Septum * Interatrial septum not well evaluated. Aortic Valve * Trileaflet aortic valve. * Mildly sclerotic aortic valve leaflets. Focal areas of calcification noted. * No aortic regurgitation. * No aortic stenosis. Mitral Valve * Mildly thickened mitral valve leaflets. * Mild mitral regurgitation. * No mitral stenosis. Tricuspid Valve * Normal tricuspid valve structure. * Moderate tricuspid regurgitation. * Mild pulmonary hypertension. Estimated RVSP 37-42 mmHg, including an estimated RA pressrue of 10-15 mmHg. Pulmonic Valve * Pulmonic valve not well visualized. * No pulmonic regurgitation. Aorta * Normally sized aortic root. Pericardium * The pericardium appears normal. IVC * The IVC is not dilated. * < 50% respiratory change. Pulmonary Artery * Normal visualized portions of the main pulmonary artery. History Congestive Heart Failure 07/25/2016 a Previous Echo was performed. Contrast: Agitated saline 20 ml. Definity 1.3 ml in 8.7 ml of saline 2 ml. Measurements: BP: 84/ 74 2D Normal Values RVIDd: 3.50 cm <2.7 cm IVSd: .70 cm 0.6 - 1.0 cm LVIDd: 6.40 cm 3.7 - 5.6 cm LVPWd: .90 cm 0.6 - 1.1 cm LVIDs: 5.80 cm 1.5 - 3.6 cm AO: 2.50 cm < 4.0 cm LA: 4.10 cm 2.0 - 4.0cm LA volume: 82 Mitral Valve Dec Time:243.00 msec Peak E' Lat Abdulkadir:6.53 cm/s Peak E' Med Abdulkadir:7.31 cm/s E/E' Lat Ratio:8.2 E/E' Med Ratio:7.3 Tricuspid Valve TV Regurg Peak Grad: 27.00mmHg TV Regurg Peak Abdulkadir: 2.58m/sec Updated by Bruce Castillo DO, FACLiza, CHUCK, ALLYSON on 10/30/2016 9:03:14 AM electronically signed on 10/30/2016 9:04:48 AM with status of Final Wall Motion Muhammad: 1=Normal, 2=Hypokinesis, 3=Akinesis, 4=Dyskinesis, 5=Aneurysmal, 6=Hyperkinetic, X=Not Visualized (Blank)=Missing
[2016-10-30] MEDS: Pantoprazole 40 MG VIAL IVPB SCH (09:12)
[2016-10-30] MEDS: Nicotine 7 MG PATCH.TD24 TD SCH (09:12)
--- NOTE | 2016-10-30 09:59 | Pulmonology Consult Note ---
Date of Encounter: 10/30/16 Time of Encounter: 09:58 Assessment and Plan (1) Acute on chronic systolic (congestive) heart failure Current Visit: No Status: Acute Patient has known history of heart failure with reduced ejection fraction. Echocardiogram revealed in EF of 15 to 20%, a moderately dilated left ventricle. Severe global left ventricular systolic dysfunction, with indeterminate diastolic function. Extensive left ventricular thrombus extending from the mid-apical interior and apex segments of the left ventricle. With a moderately dilated hyperkinetic right ventricle, moderate biatrial enlargement, mild mitral regurgitation, moderate tricuspid regurgitation, mild pulmonary hypertension. Estimated RVSP 37-42 mmHg. And finally global hypo- kinesis. Chest x-ray revealed bilateral pleural effusions worse on the right. Abdominal CT scan revealed mild pericardial effusion, moderate ascites, hepatic steatosis, horseshoe kidney, and reactive retroperitoneal and mesenteric lymph nodes. On exam he does have edema is bilateral lower extremities, and ascites. He has an S3 gallop on auscultation. He is volume overloaded, which is secondary to his worsening heart failure. Cardiology has been consulted and seen patient this am. Patient will be transferred to [facility] tomorrow for evaluation and determination if he is eligible for an LVAD. This is what the patient and is BLAZE, which is his sister, want. Plan is to diuerese with Lasix drip @10mg/hr,and 1.5 L fluid restriction. Monitor chemistries and strict I/O's. Continue Dobutamine drip for pressure support. (2) Acute and chronic respiratory failure Current Visit: Yes Status: Acute Likely mulitfactorial 2/2 COPD exacerbation AND CHF exacerbation. Patient has an approximate 60 pack year smoking history and is on 2L O2 at home. He became increasingly short of breath with exertion over the last 3 days prior to admission. He also noted subjective fevers and chills along with increased cough and sputum production. It was initially thought that this may be a bacterial pneumonia and he was started on vancomycin and Levaquin. Upon reevaluation he is afebrile and has been so since admission. CXR did not reveal any consolidation or increased opacities. No rales appreciated on exam. WBC wnl. He received Levaquin and Vancomycin for one day. Will discontinue antibiotics at this time as this is less likely to be bacterial pneumonia. Currently oxygenating well on 2L NC. Will continue supplemental O2, bronchodilators, and BiPAP PRN. Chest CTA 10/29/16 13:33 IMPRESSION: *No evidence of a pulmonary embolism. *Bilateral pleural effusions, right side greater than left, with associated atelectasis in the lung bases, stable. *Cardiomegaly with findings suggestive of right-sided heart failure. *Emphysema. *Enlarged mediastinal and right hilar lymph nodes, presumably reactive, unchanged. *Ascites, incompletely imaged, increased from the previous study. Qualifiers: Respiratory failure complication: hypoxia Qualified Code(s): J96.21 - Acute and chronic respiratory failure with hypoxia (3) Chest pain Current Visit: Yes Status: Acute Pt. has pleuritic chest pain. Chest pain is not increased by exertion and is not relieved by rest. Non- cardiac chest pain. CT scan revealed small pericardial effusion. No EKG changes when compared with prior. Troponins: 0.12, 0.12, 0.11. Likely demand ischemia 2/2 HF Dilaudid PRN for pain control Qualifiers: Chest pain type: chest pain on breathing Qualified Code(s): R07.1 - Chest pain on breathing (4) Hypotension Current Visit: Yes Status: Acute Pt. was initially 89/69. He was started on Dopamine for pressure support/ ionotropic support. He developed a 17 beat run of Vtach and the dopamine was d/c'd. He was then started on Dobutamine 2.5 mcg/kg/min MAP: currently 83. Low MAP of 75. Will continue dopamine at this time. No IVF as patient is fluid overloaded Qualifiers: Hypotension type: unspecified hypotension type Qualified Code(s): I95.9 - Hypotension, unspecified (5) Elevated troponin Current Visit: Yes Status: Acute (6) Supratherapeutic INR Current Visit: Yes Status: Acute Patient was recently found to have a 3cm x 4cm thrombus in the left ventricle and was started on warfarin. His INR was 5.8 on admission and is 8.1 this am. He also has severe HF, with elevated liver enzymes, elevated bili, and low albumin. Supratherapeutic INR likely multifacorial from Coumadin and hepatic vascular congestion. Continue to hold Coumadin (7) COPD (chronic obstructive pulmonary disease) Current Visit: Yes Status: Chronic Chronic. 60pk year smoking history. Continue bronchodilators No steroids as they can cause fluid retention and pt. is already fluid overloaded. Qualifiers: COPD type: unspecified COPD Qualified Code(s): J44.9 - Chronic obstructive pulmonary disease, unspecified (8) LV (left ventricular) mural thrombus Current Visit: Yes Status: Chronic (9) DVT prophylaxis Current Visit: No Status: Acute INR currently 8.1. Continue to hold warfarin (10) For resuscitation status Current Visit: Yes Status: Acute Pt. was initially FULL CODE He then wanted his CODE STATUS changed to DNR CCA DNI After speaking with cardiology, and planning to be transferred to tertiary care center for possible LVAD, patient has stated he wants to be a FULL CODE. PATIENT IS A FULL CODE History of Present Illness Consult date: 10/30/16 Requesting physician: Vivian Jackson Reason for consult: dyspnea, pleural effusion Chief complaint: sob History of present illness: Mr. Hardwick is a 66-year-old male with a past medical history of severe systolic heart failure with LVEF of 15%, COPD on 2 L oxygen at home, hypertension. He had a two-week history of worsening dyspnea on exertion. 3 days prior to admission he became febrile and had chills, had worsening cough and chest pain. He presented to the ED on 10/29/2016. He was tachycardic and tachypnic. In ED d-dimer was drawn and was elevated so there was concern he may have a PE, however a stat CTA did not reveal a PE. It did however reveal a 4cm x 3cm left ventricular mural wall thrombus. This had previously been noticed on a echocardiogram at [place] in September of this year, and the patient was started on warfarin. He was admitted to the ICU. He continues to require pressure support with dobutamine and oxygenation with supplemental O2. He is maintaining MAP 70-85. He is receiving lasix drip for diuresis and BiPAP as tolerated. His sister is at the bedside and is his POA. They have decided to revert back to prior CODE STATUS of FULL CODE. Cardiology saw patient this AM and has placed transfer orders to [facility] for evaluation for LVAD. Plan is for patient to be transferred tomorrow. Prior studies. 09/26/16: [place] echocardiogram LVEF 15%, large LV thrombus 4cm x 3 cm, moderate TR, RV systolic pressure 45 mmHg, signs consistent with increased right atrial pressure. 07/25/16: echocardiogram shows LVEF 10-15%, moderately dilated LV, severe global LV systolic dysfunction. 09/02/16: PFTs reveal moderate obstructive ventilatory impairment with moderate gas diffusion exchange abnormality,and decreased total lung capacity. Past Med Surg Social Fam HX - Past Medical History Medical history: arthritis, cardiomyopathy, CHF, COPD, coronary artery disease, other Psychiatric history: no psych history - Past Surgical History Surgical History: orthopedic, other - Social History Smoking Status: Former smoker Smokeless Tobacco Status: No Alcohol use: none Drug use: none - Family History Father Hx Family Cardiac Disorders: Yes Medications and Allergies Albuterol Sulfate [Ventolin Hfa] 2 puff IH Q4H PRN #1 hfa.aer.ad 07/26/16 [Rx] Umeclidinium Bath [Incruse Ellipta] 62.5 mcg IH DAILY #1 blst.w.dev 07/26/16 [Rx] Albuterol Neb [Proventil Neb] 2.5 mg IH Q6H PRN 09/13/16 [History] Carvedilol [Coreg] 6.25 mg PO BID #60 tablet 09/17/16 [Rx] Lactose-Reduced Food [Ensure Original] 1 bottle PO BID #60 can 09/17/16 [Rx] Lisinopril 2.5 mg PO DAILY #30 tablet 09/17/16 [Rx] Allopurinol [Zyloprim 100 MG] 100 mg PO DAILY 10/29/16 [History] Alprazolam [Xanax 0.25 MG Tablet] 0.25 mg PO TID PRN 10/29/16 [History] Bumetanide [Bumex] 1 mg PO BID 10/29/16 [History] Omeprazole [PriLOSEC] 20 mg PO DAILY 10/29/16 [History] Warfarin [Coumadin] 5 mg PO MOWEFR 10/29/16 [History] Warfarin [Coumadin] 7.5 mg PO SUTUTHSA 10/29/16 [History] Allergies codeine Allergy (Verified 10/29/16 14:46) Rash Sulfa (Sulfonamide Antibiotics) Allergy (Verified 10/29/16 14:45) Hives All Systems: A 10-system review of systems was performed and is negative for pertinent findings except as documented above in the HPI. - Constitutional Constitutional: fatigue, weakness - Cardiovascular Cardiovascular: chest pain, dyspnea, dyspnea on exertion, leg edema, rapid heart rate - Respiratory Respiratory: cough, dyspnea, dyspnea on exertion, wheezing, pain on inspirtation , no hemoptysis - Gastrointestinal Gastrointestinal: no abdominal pain - Neurological Neurological: no dizziness, no focal weakness, no headache(s) Physical Examination Vital Signs: Vital Signs, Last 4 Hours Temp Pulse Resp BP Pulse Ox 10/30/16 09:00 115 22 90/78 96 10/30/16 08:00 115 22 96/62 96 10/30/16 07:40 22 96 10/30/16 07:39 116 22 91/76 96 10/30/16 07:31 97.5 F L 10/30/16 06:00 112 26 92/76 96 General appearance: lethargic ENT: oropharynx moist Neck: supple Effort: mildly labored Inspection: normal Auscultation: bilateral: diminished breath sounds, wheezes Cardiovascular: regular rate and rhythm Gastrointestinal: normoactive bowel sounds Extremities: edema, anasarca pupils equal and round, CN II-XII normal Results - Laboratory Findings CBC and BMP: 10/30/16 02:53 10/30/16 02:53 PT/INR, D-dimer PT 92.8 Seconds (9.4-12.1) H* 10/30/16 02:53 D-Dimer 6513 ng/mLFEU (0-500) H 10/30/16 02:53 Abnormal lab findings: Abnormal lab results RDW 18.9 % (11.5-14.5) H 10/30/16 02:53 PT 92.8 Seconds (9.4-12.1) H* 10/30/16 02:53 INR 8.1 H* 10/30/16 02:53 APTT 43.1 Seconds (26.0-36.0) H 10/30/16 02:53 D-Dimer 6513 ng/mLFEU (0-500) H 10/30/16 02:53 VBG pO2 47 mmHg (25-40) H 10/29/16 22:27 Sodium 127 mEq/L (136-145) L 10/30/16 02:53 Potassium 5.0 mEq/L (3.5-4.5) H 10/30/16 02:53 Chloride 94 mEq/L (98-109) L 10/30/16 02:53 Carbon Dioxide 18 mEq/L (19-29) L 10/30/16 02:53 BUN 35 mg/dL (8-26) H 10/30/16 02:53 Creatinine 1.34 mg/dL (0.72-1.25) H 10/30/16 02:53 Est GFR (Non-Af Amer) 54 (> 60) L 10/30/16 02:53 Glucose 129 mg/dL (70-99) H 10/30/16 02:53 POC Glucose 147 (58-89) H 10/30/16 00:11 Calculated Osmolality 274 (280-300) L 10/30/16 02:53 Lactic Acid 4.0 mmol/L (0.5-2.2) H* 10/29/16 14:58 Ionized Calcium 1.03 mmol/L (1.15-1.35) L 10/29/16 22:27 Phosphorus 5.1 mg/dL (2.3-4.7) H D 10/30/16 02:53 Total Bilirubin 2.0 mg/dL (0.2-1.2) H 10/30/16 02:53 Direct Bilirubin 1.1 mg/dL (0.0-0.5) H 10/30/16 02:53 AST 57 Units/L (5-34) H 10/30/16 02:53 ALT 104 Units/L (0-55) H 10/30/16 02:53 Troponin I 0.11 ng/mL (0-0.03) H* 10/30/16 02:53 C-Reactive Protein 31 mg/L (Less than 5) H 10/29/16 12:07 B-Natriuretic Peptide 4775 pg/mL (0-100) H 10/29/16 12:07 Albumin 3.1 g/dL (3.5-5.0) L 10/30/16 02:53 Albumin/Globulin Ratio 0.9 (1.1-2.2) L 10/30/16 02:53 Urine Clarity Cloudy (Clear) A 10/29/16 13:13 Urine Protein 30 mg/dL (Neg-Trace) H 10/29/16 13:13 Urine Bilirubin Small (Negative) H 10/29/16 13:13 Ur Leukocyte Esterase Small (Negative) H 10/29/16 13:13 Urine Microscopic RBC 3-5 per hpf (0-3) H 10/29/16 13:13 Ur Squamous Epith Cells Many per lpf (None-Few) H 10/29/16 13:13 Ur Culture Indicated? YES (NO) A 10/29/16 13:13 U Benzodiazepines Scrn Positive ng/mL (Nrdlza=761) H 10/29/16 13:05 - Clinical Findings Intake & Output: Intake & Output 10/29/16 10/30/16 10/30/16 23:59 07:59 15:59 Intake Total 372 / 372 800.5 / 800.5 Output Total 565 / 565 275 / 275 Balance -193 / -193 525.5 / 525.5 Weight 71.622 kg Consult Discharge Plan - Plan Referrals: Josias Hurley DO [Primary Care Provider] -
[2016-10-30 10:11] LABS: ABG Base Excess -3.1 mEq/L (-2.0 to 3.0); ABG HCO3 21.2 mEQ/L (21-27); ABG Oxygen Saturation 96 % (95-98); ABG PCO2 35 mmHg (35-45); ABG PH 7.39 pH Units (7.32-7.45); ABG PO2 80 mmHg (85-104); ABG TCO2 22.3 mEq/L (20-26)
[2016-10-30 10:12] LABS: Blood Gas FiO2 28 %
--- NOTE | 2016-10-30 11:46 | Cardiology Consult Note ---
<Tani Mendoza - Last Filed: 10/30/16 11:40> Date of Encounter: 10/30/16 Time of Encounter: 11:40 Assessment and Plan (1) Acute on chronic systolic (congestive) heart failure Current Visit: No Status: Acute Biventricular Heart failure LVEF at 10-15% Ascities, noted pedal edema, increased respiratory demand Patient will be transferred to [facility] for discussion of LVAD placement, accepted by Dr. Dorsey. Bed pending at this time. (2) Acute and chronic respiratory failure Current Visit: Yes Status: Acute Multifactoral with COPD, Fluid overload, poor compliance with oxygen therapy. Lasix drip 10 mg/hr Associated with biventricular heart failure. BiPAP as needed. Qualifiers: Respiratory failure complication: hypoxia Qualified Code(s): J96.21 - Acute and chronic respiratory failure with hypoxia (3) Supratherapeutic INR Current Visit: Yes Status: Acute INR 8.1. holding coumadin. (4) LV (left ventricular) mural thrombus Current Visit: Yes Status: Chronic Per CTA from [facility]. Placed on Warfarin therapy. Currently supratherapeutic INR. Holding coumadin at this time. (5) Acute renal injury Current Visit: No Status: Acute Likely associated with poor perfusion. Discussion w patient/family: The assessment and plan as outlined above was discussed with the patient and/or family members who expressed understanding and agreement. All questions were answered. Thank you for involving us in the care of your patient. Please call with any questions. History of Present Illness Consult date: 10/30/16 Requesting physician: Vivian Jackson Consult reason: Acute decompensated Heart Failure Chief complaint: Dyspnea, Weakness History of present illness: Mr. Hardwick is a 66 year old male presented to [facility] after complaining of worsening dyspnea over the past 48 hours. Patient has Hx of COPD who is non- compliant with oxygen with associated fevers and cough. The patient states that he was recently admitted to [facility] for similar complaints where they had apparently discussed options with regards to further care. The patient claims that they "get him better for a week" then he returns soon after. He is complaining of worsening pedal edema as well. At [facility] he was found to have a large LV thrombus and started on warfarin therapy. Patient was recently increased in his warfarin dose as well. Echo revealed LVEF to be 15%. Past Med Surg Social Fam HX - Past Medical History Attestation: Yes The following information was validated with the patient. Source: patient, old records reviewed Medical history: arthritis, cardiomyopathy, CHF, COPD, coronary artery disease, other Psychiatric history: no psych history - Past Surgical History Surgical History: orthopedic, other - Social History Smoking Status: Former smoker Smokeless Tobacco Status: No Alcohol use: none Drug use: none - Family History Father Hx Family Cardiac Disorders: Yes Medications and Allergies Albuterol Sulfate [Ventolin Hfa] 2 puff IH Q4H PRN #1 hfa.aer.ad 07/26/16 [Rx] Umeclidinium [place] [Incruse Ellipta] 62.5 mcg IH DAILY #1 blst.w.dev 07/26/16 [Rx] Albuterol Neb [Proventil Neb] 2.5 mg IH Q6H PRN 09/13/16 [History] Carvedilol [Coreg] 6.25 mg PO BID #60 tablet 09/17/16 [Rx] Lactose-Reduced Food [Ensure Original] 1 bottle PO BID #60 can 09/17/16 [Rx] Lisinopril 2.5 mg PO DAILY #30 tablet 09/17/16 [Rx] Allopurinol [Zyloprim 100 MG] 100 mg PO DAILY 10/29/16 [History] Alprazolam [Xanax 0.25 MG Tablet] 0.25 mg PO TID PRN 10/29/16 [History] Bumetanide [Bumex] 1 mg PO BID 10/29/16 [History] Omeprazole [PriLOSEC] 20 mg PO DAILY 10/29/16 [History] Warfarin [Coumadin] 5 mg PO MOWEFR 10/29/16 [History] Warfarin [Coumadin] 7.5 mg PO SUTUTHSA 10/29/16 [History] Allergies codeine Allergy (Verified 10/29/16 14:46) Rash Sulfa (Sulfonamide Antibiotics) Allergy (Verified 10/29/16 14:45) Hives All Systems Review: A 10-system review of systems was performed and is negative for pertinent findings except as documented above in the HPI. - Constitutional Constitutional: fatigue, fever(s), weakness, weight gain - Cardiovascular Cardiovascular: dyspnea at rest, dyspnea on exertion, leg edema, orthopnea - Respiratory Respiratory: cough, dyspnea Physical Examination Vital Signs, Last 4 Hours Temp Pulse Resp BP Pulse Ox 10/30/16 11:29 22 96 10/30/16 11:26 97.4 F L 10/30/16 10:00 110 22 98/76 96 10/30/16 09:00 115 22 90/78 96 10/30/16 08:00 115 22 96/62 96 General: Conversant, No Apparent Distress HEENT: Atraumatic, Mucus Membranes Moist Neck: Other (Mild JVD) Cardiac: Reg Rate and Rhythm, Other (S3 noted) Lungs: Other (Coarse breath sounds with mild rales bilaterally.) Neuro: Alert and responsive, No focal deficits noted Abdomen: Soft, Non-Tender Skin: No rashes noted on visualized skin Musculoskeletal: No Chest Wall Tenderness Extremities: No Clubbing, No Cyanosis, Other (1-2+ pitting edema) Results 10/30/16 02:53 10/30/16 02:53 Lab Results 10/29/16 10/29/16 10/30/16 19:43 22:27 02:53 WBC Hgb Hct Plt Count INR APTT D-Dimer Sodium Potassium Chloride Carbon Dioxide BUN Creatinine Glucose Calcium Magnesium 0.9 L Total Bilirubin AST ALT Alkaline Phosphatase Troponin I 0.12 H* 0.11 H* 10/30/16 10/30/16 10/30/16 02:53 02:53 02:53 WBC 11.1 Hgb 15.3 Hct 47.2 Plt Count 347 INR 8.1 H* APTT 43.1 H D-Dimer Sodium 127 L Potassium 5.0 H Chloride 94 L Carbon Dioxide 18 L BUN 35 H Creatinine 1.34 H Glucose 129 H Calcium 9.0 Magnesium 2.1 Total Bilirubin 2.0 H AST 57 H ALT 104 H Alkaline Phosphatase 106 Troponin I 10/30/16 02:53 WBC Hgb Hct Plt Count INR APTT D-Dimer 6513 H Sodium Potassium Chloride Carbon Dioxide BUN Creatinine Glucose Calcium Magnesium Total Bilirubin AST ALT Alkaline Phosphatase Troponin I - Imaging and Cardiology Chest Xray: report reviewed, image reviewed Echo: report reviewed - EKG Interpretation EKG results cardiology: personally reviewed, no diagnostic ischemia Consult Discharge Plan - Plan Referrals: Josias Hurley DO [Primary Care Provider] - - Attending Attestation I examined this patient and my medical decision-making was reviewed with the Resident Physician. I agree with the documented findings, disposition and treatment plan as described except to the extent set forth below. <HarperAaron G - Last Filed: 10/30/16 13:02> Date of Encounter: 10/30/16 Assessment and Plan Discussion w patient/family: The assessment and plan as outlined above was discussed with the patient and/or family members who expressed understanding and agreement. All questions were answered. Thank you for involving us in the care of your patient. Please call with any questions. History of Present Illness History of present illness: Mr. Hardwick is a 66 year old male All Systems Review: A 10-system review of systems was performed and is negative for pertinent findings except as documented above in the HPI. Physical Examination Vital Signs, Last 4 Hours Temp Pulse Resp BP Pulse Ox 10/30/16 11:29 22 96 10/30/16 11:26 97.4 F L 10/30/16 10:00 110 22 98/76 96 Results 10/30/16 02:53 10/30/16 02:53 Lab Results 10/29/16 10/29/16 10/30/16 19:43 22:27 02:53 WBC Hgb Hct Plt Count INR APTT D-Dimer Sodium Potassium Chloride Carbon Dioxide BUN Creatinine Glucose Calcium Magnesium 0.9 L Total Bilirubin AST ALT Alkaline Phosphatase Troponin I 0.12 H* 0.11 H* 10/30/16 10/30/16 10/30/16 02:53 02:53 02:53 WBC 11.1 Hgb 15.3 Hct 47.2 Plt Count 347 INR 8.1 H* APTT 43.1 H D-Dimer Sodium 127 L Potassium 5.0 H Chloride 94 L Carbon Dioxide 18 L BUN 35 H Creatinine 1.34 H Glucose 129 H Calcium 9.0 Magnesium 2.1 Total Bilirubin 2.0 H AST 57 H ALT 104 H Alkaline Phosphatase 106 Troponin I 10/30/16 02:53 WBC Hgb Hct Plt Count INR APTT D-Dimer 6513 H Sodium Potassium Chloride Carbon Dioxide BUN Creatinine Glucose Calcium Magnesium Total Bilirubin AST ALT Alkaline Phosphatase Troponin I - Attending Attestation pt remains mod sob, with symptoms and signs of low CO and fluid overload a/w dobutamine will need a more definite therapy such as possible LVAD, Tx I don't see any obvious contraindications d/w Dr. Dorsey at [facility] will arrange for a transfer to [facility] for evaluation plan; cont present rx
[2016-10-30] MEDS ORDERED: Levofloxacin 500 MG/100 ML 500 MG/100 ML BAG IVPB SCH (13:00)
[2016-10-30] MEDS ORDERED: Furosemide 240 MG in D5% in Water 96 ML IVC SCH (13:03)
--- NOTE | 2016-10-30 14:28 | Event Note ---
Date of Encounter: 10/30/16 Time of Encounter: 14:23 Patient examined, chart and all data reviewed as well as imaging studies. Management of this case was reviewed in detail with the house staff as well as the nursing staff during multidisciplinary critical care rounds. He suffers from acute respiratory failure of the hypoxemic variety secondary to decompensated acute on chronic systolic heart failure with known severe left ventricular systolic dysfunction as well as RV dysfunction and secondary pulmonary hypertension. Patient also has acute kidney injury due to hypoperfusion hemodynamic impairment related to left heart dysfunction, congestive hepatopathy with coagulopathy in part related to administered anticoagulation for treatment of left ventricular thrombus. Furthemore, the patient caries a history of COPD related to prior smoking habit The patient will be maintained on diuretic therapy and in addition will be placed on low-dose dobutamine infusion to enhance systolic LV function. The patient will eventually require afterload reduction, BB to tolerance. Overall, this patient has a poor prognosis and should be evaluated if appropriate for advanced therapies) left ventricular systolic device retransplant) obviously, I will defer this to the cardiology service. If necessary, the patient may utilize noninvasive ventilatory support in conjunction with supplemental oxygen. For treatment of COPD, bronchodilator therapy has been provided and he will continue to be provided.
--- NOTE | 2016-10-30 15:36 | Event Note ---
Date of Encounter: 10/30/16 Time of Encounter: 15:30 Consult received on this pt. D/W Dr. Fernández - Cardiology preparing to transfer for possible LVAD vs transplant. According to chart review, Dr. Dorsey at [facility] has accepted this pt and awaiting bed availability. Palliative will hold off on consult at this time - please call if needed.
[2016-10-31] MEDS: Ipratropium Neb 0.5 MG NEBULIZER IH SCH ×5 (00:24→15:53)
[2016-10-31] MEDS: Levalbuterol Neb 1.25 MG/3 ML IH SCH ×5 (00:24→15:53)
[2016-10-31] MEDS: *HR* LORazepam 2 MG/ML VIAL IVP PRN ×3 (03:09→14:43)
[2016-10-31] MEDS: *HR* HYDROmorphone (PF) 1 MG/ML SYRINGE IVP PRN ×3 (03:09→14:43)
[2016-10-31 03:39] LABS: Basophils # 0.1 K/mcL (0.0-0.2); Basophils % 0.5 %; Eosinophils # 0.1 K/mcL (0.0-0.6); Eosinophils % 1.2 %; Hematocrit 38.2 % (37.5-50.1); Hemoglobin 12.8 g/dL (12.9-16.9); Immature Granulocytes % 0.5 % (0-4); Lymphocytes # 1.5 K/mcL (0.6-4.6); Lymphocytes % 14.3 %; Mean Corpuscular HGB Conc 33.5 g/dL (31.6-35.5); Mean Corpuscular Hemoglobin 30.9 pg (28.0-33.3); Mean Corpuscular Volume 92.3 fL (83.0-100.0); Monocytes # 0.6 K/mcL (0.0-1.3); Monocytes % 5.4 %; Neutrophils # 8.3 K/mcL (1.6-8.9); Platelet Count 255 K/mcL (140-400); Red Blood Count 4.14 M/mcL (4.19-5.50); Red Cell Distribution Width 18.5 % (11.5-14.5); Segmented Neutrophils % 78.1 %
[2016-10-31 03:41] LABS: INR 2.6; Prothrombin Time 28.3 Seconds (9.4-12.1)
[2016-10-31 03:53] LABS: Alanine Aminotransferase 244 Units/L (0-55); Albumin 2.5 g/dL (3.5-5.0); Albumin/Globulin Ratio 0.9 (1.1-2.2); Alkaline Phosphatase 81 Units/L (38-126); Aspartate Amino Transferase 232 Units/L (5-34); BUN/Creatinine Ratio 26 (6-26); Bilirubin,Total 1.2 mg/dL (0.2-1.2); Blood Urea Nitrogen 26 mg/dL (8-26); Carbon Dioxide 25 mEq/L (19-29); Chloride 97 mEq/L (98-109); Globulin 2.8 g/dL (2.4-3.5); Glucose 129 mg/dL (70-99); Osmolality,Calculated 280 (280-300); Sodium 132 mEq/L (136-145); eGFR For African Americans > 60 (> 60); eGFR For Non-African Americans > 60 (> 60)
[2016-10-31 03:54] LABS: Potassium 3.7 mEq/L (3.5-4.5); Total Protein 5.3 g/dL (6.0-8.3)
--- NOTE | 2016-10-31 08:03 | Pulmonology Progress Note ---
Date of Encounter: 10/31/16 Time of Encounter: 07:58 Assessment and Plan (1) Acute on chronic systolic (congestive) heart failure Current Visit: No Status: Acute (2) Acute and chronic respiratory failure Current Visit: Yes Status: Acute Qualifiers: Respiratory failure complication: hypoxia Qualified Code(s): J96.21 - Acute and chronic respiratory failure with hypoxia (3) Chest pain Current Visit: Yes Status: Acute Qualifiers: Chest pain type: chest pain on breathing Qualified Code(s): R07.1 - Chest pain on breathing (4) Hypotension Current Visit: Yes Status: Acute Qualifiers: Hypotension type: unspecified hypotension type Qualified Code(s): I95.9 - Hypotension, unspecified (5) Elevated troponin Current Visit: Yes Status: Acute (6) Supratherapeutic INR Current Visit: Yes Status: Acute (7) COPD (chronic obstructive pulmonary disease) Current Visit: Yes Status: Chronic Qualifiers: COPD type: unspecified COPD Qualified Code(s): J44.9 - Chronic obstructive pulmonary disease, unspecified (8) LV (left ventricular) mural thrombus Current Visit: Yes Status: Chronic (9) DVT prophylaxis Current Visit: No Status: Acute (10) For resuscitation status Current Visit: Yes Status: Acute Subjective Principal diagnosis: CHF Interval history: Patient seen and examined. Sitting up in bed, conversational, friendly. Had BM yesterday. One episode of substernal chest pain yesterday relieved with IV dilaudid. Denies any nausea. Has been eating well. Cardiology has contacted [facility] and they have accepted patient as transfer for possible LVAD. At this time he denies any other complaints. Objective PUL Vital signs: Last Vital Signs Temp 97.9 F 10/31/16 04:00 Pulse 100 10/31/16 07:32 Resp 20 10/31/16 07:00 BP 88/62 10/31/16 07:00 Pulse Ox 99 10/31/16 07:00 Results - Laboratory Findings CBC and BMP: 10/31/16 03:00 10/31/16 03:00 ABG ABG pH 7.39 pH Units (7.32-7.45) 10/30/16 10:00 ABG pCO2 35 mmHg (35-45) 10/30/16 10:00 ABG pO2 80 mmHg (85-104) L 10/30/16 10:00 ABG O2 Saturation 96 % (95-98) 10/30/16 10:00 PT/INR, D-dimer PT 28.3 Seconds (9.4-12.1) H D 10/31/16 03:00 D-Dimer 6513 ng/mLFEU (0-500) H 10/30/16 02:53 Abnormal lab findings: Abnormal lab results RBC 4.14 M/mcL (4.19-5.50) L 10/31/16 03:00 Hgb 12.8 g/dL (12.9-16.9) L D 10/31/16 03:00 RDW 18.5 % (11.5-14.5) H 10/31/16 03:00 PT 28.3 Seconds (9.4-12.1) H D 10/31/16 03:00 APTT 43.1 Seconds (26.0-36.0) H 10/30/16 02:53 D-Dimer 6513 ng/mLFEU (0-500) H 10/30/16 02:53 ABG pO2 80 mmHg (85-104) L 10/30/16 10:00 ABG Base Excess -3.1 mEq/L (-2.0 to 3.0) L 10/30/16 10:00 VBG pO2 47 mmHg (25-40) H 10/29/16 22:27 Sodium 132 mEq/L (136-145) L 10/31/16 03:00 Chloride 97 mEq/L (98-109) L 10/31/16 03:00 Glucose 129 mg/dL (70-99) H 10/31/16 03:00 POC Glucose 104 (58-89) H 10/30/16 19:46 Lactic Acid 4.0 mmol/L (0.5-2.2) H* 10/29/16 14:58 Calcium 8.0 mg/dL (8.6-10.8) L 10/31/16 03:00 Ionized Calcium 1.03 mmol/L (1.15-1.35) L 10/29/16 22:27 Phosphorus 5.1 mg/dL (2.3-4.7) H D 10/30/16 02:53 Direct Bilirubin 1.1 mg/dL (0.0-0.5) H 10/30/16 02:53 AST 232 Units/L (5-34) H 10/31/16 03:00 ALT 244 Units/L (0-55) H 10/31/16 03:00 Troponin I 0.11 ng/mL (0-0.03) H* 10/30/16 02:53 C-Reactive Protein 31 mg/L (Less than 5) H 10/29/16 12:07 B-Natriuretic Peptide 4775 pg/mL (0-100) H 10/29/16 12:07 Serum Total Protein 5.3 g/dL (6.0-8.3) L 10/31/16 03:00 Albumin 2.5 g/dL (3.5-5.0) L 10/31/16 03:00 Albumin/Globulin Ratio 0.9 (1.1-2.2) L 10/31/16 03:00 Urine Clarity Cloudy (Clear) A 10/29/16 13:13 Urine Protein 30 mg/dL (Neg-Trace) H 10/29/16 13:13 Urine Bilirubin Small (Negative) H 10/29/16 13:13 Ur Leukocyte Esterase Small (Negative) H 10/29/16 13:13 Urine Microscopic RBC 3-5 per hpf (0-3) H 10/29/16 13:13 Ur Squamous Epith Cells Many per lpf (None-Few) H 10/29/16 13:13 Ur Culture Indicated? YES (NO) A 10/29/16 13:13 U Benzodiazepines Scrn Positive ng/mL (Enimbk=135) H 10/29/16 13:05 - Microbiology Findings Microbiology Findings: Microbiology, Last 48 Hours 10/29/16 15:06 Blood Culture - Preliminary Peripheral Venipuncture No growth. 10/29/16 14:58 Blood Culture - Preliminary Peripheral Venipuncture No growth. - Clinical Findings Intake & Output: Intake & Output 10/30/16 10/30/16 10/31/16 15:59 23:59 07:59 Intake Total 400 / 400 360 / 360 386 / 386 Output Total 1100 / 1100 700 / 700 1450 / 1450 Balance -700 / -700 -340 / -340 -1064 / -1064 Weight 72.575 kg Consult Discharge Plan - Plan Referrals: Josias Hurley DO [Primary Care Provider] -
--- NOTE | 2016-10-31 09:36 | Discharge Summary ---
Date of Encounter: 10/31/16 Time of Encounter: 09:36 - Discharge Diagnosis (1) Acute on chronic systolic (congestive) heart failure Priority: Primary Status: Acute (2) Acute and chronic respiratory failure Priority: Primary Status: Acute Qualifiers: Respiratory failure complication: hypoxia Qualified Code(s): J96.21 - Acute and chronic respiratory failure with hypoxia (3) Chest pain Priority: Secondary Status: Acute Qualifiers: Chest pain type: chest pain on breathing Qualified Code(s): R07.1 - Chest pain on breathing (4) Hypotension Priority: Primary Status: Acute Qualifiers: Hypotension type: unspecified hypotension type Qualified Code(s): I95.9 - Hypotension, unspecified (5) Elevated troponin Priority: Secondary Status: Acute (6) Supratherapeutic INR Priority: Secondary Status: Acute (7) COPD (chronic obstructive pulmonary disease) Priority: Secondary Status: Chronic Qualifiers: COPD type: unspecified COPD Qualified Code(s): J44.9 - Chronic obstructive pulmonary disease, unspecified (8) LV (left ventricular) mural thrombus Priority: Secondary Status: Chronic (9) DVT prophylaxis Priority: Secondary Status: Acute (10) For resuscitation status Priority: Secondary Status: Acute - Discharge Medications Home Medications: Albuterol Sulfate [Ventolin Hfa] 2 puff IH Q4H PRN #1 hfa.aer.ad 07/26/16 [Rx] Umeclidinium [place] [Incruse Ellipta] 62.5 mcg IH DAILY #1 blst.w.dev 07/26/16 [Rx] Albuterol Neb [Proventil Neb] 2.5 mg IH Q6H PRN 09/13/16 [History] Carvedilol [Coreg] 6.25 mg PO BID #60 tablet 09/17/16 [Rx] Lactose-Reduced Food [Ensure Original] 1 bottle PO BID #60 can 09/17/16 [Rx] Lisinopril 2.5 mg PO DAILY #30 tablet 09/17/16 [Rx] Allopurinol [Zyloprim 100 MG] 100 mg PO DAILY 10/29/16 [History] Alprazolam [Xanax 0.25 MG Tablet] 0.25 mg PO TID PRN 10/29/16 [History] Bumetanide [Bumex] 1 mg PO BID 10/29/16 [History] Omeprazole [PriLOSEC] 20 mg PO DAILY 10/29/16 [History] Warfarin [Coumadin] 5 mg PO MOWEFR 10/29/16 [History] Warfarin [Coumadin] 7.5 mg PO SUTUTHSA 10/29/16 [History] Nicotine Patch [Nicoderm] 7 mg TD DAILY patch.td24 10/31/16 [Rx] Allergies/Adverse Reactions: Allergies codeine Allergy (Verified 10/29/16 14:46) Rash Sulfa (Sulfonamide Antibiotics) Allergy (Verified 10/29/16 14:45) Hives Labs on day of discharge: Labs from last 24 hours 10/31/16 10/31/16 10/31/16 03:00 03:00 03:00 WBC 10.6 RBC 4.14 L Hgb 12.8 L D Hct 38.2 MCV 92.3 MCH 30.9 MCHC 33.5 RDW 18.5 H Plt Count 255 MPV 10.0 Immature Gran % 0.5 Seg Neutrophils % 78.1 Lymphocytes % 14.3 Monocytes % 5.4 Eosinophils % 1.2 Basophils % 0.5 Neutrophils # 8.3 Lymphocytes # 1.5 Monocytes # 0.6 Eosinophils # 0.1 Basophils # 0.1 PT 28.3 H D INR 2.6 D ABG pH ABG pCO2 ABG pO2 ABG HCO3 ABG Total CO2 ABG O2 Saturation ABG Base Excess Blood Gas Modality Inspired O2 Sodium 132 L Potassium 3.7 D Chloride 97 L Carbon Dioxide 25 BUN 26 Creatinine 0.99 Est GFR ( Amer) > 60 Est GFR (Non-Af Amer) > 60 BUN/Creatinine Ratio 26 Glucose 129 H POC Glucose Calculated Osmolality 280 Calcium 8.0 L Total Bilirubin 1.2 AST 232 H ALT 244 H Alkaline Phosphatase 81 Serum Total Protein 5.3 L Albumin 2.5 L Globulin 2.8 Albumin/Globulin Ratio 0.9 L 10/30/16 10/30/16 10/30/16 19:46 17:24 11:14 WBC RBC Hgb Hct MCV MCH MCHC RDW Plt Count MPV Immature Gran % Seg Neutrophils % Lymphocytes % Monocytes % Eosinophils % Basophils % Neutrophils # Lymphocytes # Monocytes # Eosinophils # Basophils # PT INR ABG pH ABG pCO2 ABG pO2 ABG HCO3 ABG Total CO2 ABG O2 Saturation ABG Base Excess Blood Gas Modality Inspired O2 Sodium Potassium Chloride Carbon Dioxide BUN Creatinine Est GFR ( Amer) Est GFR (Non-Af Amer) BUN/Creatinine Ratio Glucose POC Glucose 104 H 101 H 138 H Calculated Osmolality Calcium Total Bilirubin AST ALT Alkaline Phosphatase Serum Total Protein Albumin Globulin Albumin/Globulin Ratio 10/30/16 10:00 WBC RBC Hgb Hct MCV MCH MCHC RDW Plt Count MPV Immature Gran % Seg Neutrophils % Lymphocytes % Monocytes % Eosinophils % Basophils % Neutrophils # Lymphocytes # Monocytes # Eosinophils # Basophils # PT INR ABG pH 7.39 ABG pCO2 35 ABG pO2 80 L ABG HCO3 21.2 ABG Total CO2 22.3 ABG O2 Saturation 96 ABG Base Excess -3.1 L Blood Gas Modality [place] Inspired O2 28 Sodium Potassium Chloride Carbon Dioxide BUN Creatinine Est GFR ( Amer) Est GFR (Non-Af Amer) BUN/Creatinine Ratio Glucose POC Glucose Calculated Osmolality Calcium Total Bilirubin AST ALT Alkaline Phosphatase Serum Total Protein Albumin Globulin Albumin/Globulin Ratio Preliminary micro results at discharge 10/29/16 15:06 Blood Culture - Preliminary Peripheral Venipuncture No growth. 10/29/16 14:58 Blood Culture - Preliminary Peripheral Venipuncture No growth. - Impressions ITS Impressions Chest X-Ray 10/30/16 19:31 IMPRESSION: Stable acute congestive heart failure with stable mild right effusion and mild progressive right lower lobe atelectasis. D/ / Tito Chew MD / Tito Chew MD Interpreting Provider: Tito Chew MD Chest X-Ray 10/31/16 04:00 IMPRESSION: Stable cardiomegaly and interstitial changes which may represent edema in the setting of acute congestive heart failure. Stable mild right lower lobe atelectasis versus pneumonia. D/ / 10/31/2016 08:04:49 Tito Chew MD / sebastian Interpreting Provider: Tito Chew MD Date of admission: 10/29/16 13:42 Primary care physician: Josias Hurley DO Consults: 10/29/16 17:07 Consult to Cardiology [CONS] Routine Comment: Consulting Provider: Cardiology [place] Reason for Consult: LV thrombus, severe systolic HF. Call Completed: Yes 10/29/16 17:08 Consult to Critical Care [CONS] Routine Consulting Provider: Pulm Crit Care [facility] Reason for Consult: sepsis. respiratory failure. severe systolic heart failure. Call Completed: Yes 10/29/16 23:34 Consult to Palliative Care [CONS] Routine Comment: Consulting Provider: Palliative Care [place] Discharging clinician: Viral Fernández Anticipated date of discharge: 10/31/16 - Patient Status Disposition: Transfer Short-Term Hosp Condition: Fair Functional capacity at discharge: bed bound Overall status at discharge: patient is not back to baseline - Discharge Instructions Follow Up With: Josias Hurley DO [Primary Care Provider] - - Diet and Activity Activity: other (transfer to [facility]) - Hospital Course Hospital course: Mr. Hardwick is a 66 year old male with past medical history of severe systolic heart failure LVEF 15%, COPD with centrilobular emphysema, noncompliant with oxygen at home, and HTN. Patient is a very poor historian. He reports a 3 day history of shortness of breath, increased cough and pleuritic chest pain. No hemoptysis. Mild epigastric pain. No bleeding. No syncope. No focal deficits. No headache. Chronic bilateral lower extremity edema that has improved significantly in the past few weeks.In ED, patient was tachycardic, tachypneic, and hypotensive. SaO2 100% on 2L NC. He received 1L IV NS, IV levaquin and xopenex nebs. Stat CTA abdomen and pelvis revealed a LV thrombus. It was negative for a PE. CT chest showed bilateral pleural effusion R>L. Echocardiogram ordered stat. Upon reviewing [facility] records, his PCP documents a diagnoses of large 4 cm x 3 cm LV thrombus on 09/26/16 and pt was started on coumadin for that. Final diagnosis of acute respiratory failure of the hypoxemic variety secondary to decompensated acute on chronic systolic heart failure with known severe left ventricular systolic dysfunction as well as RV dysfunction and secondary pulmonary hypertension. His sister is at the bedside and is his POA. They have decided to revert back to prior CODE STATUS of FULL CODE. Patient had previously decided on his own to be a DNR CCA DNI. He was admitted to the ICU. Patient was initially started more dopamine drip of 5 mcg/kg/min. a few minutes after the dopamine was started the patient had a 17 beat run of Vtach and the dopamine was discontinued. He was then started on a dobutamine drip @ 2.5mcg/kg/min for pressure support. He is maintaining MAP's 70-85. He is still requiring 2.5 mcg/kg/min of dobutamine for pressure support. He was also found to have acute kidney injury with an increase of creatinine to 1.34 from 1.15. At the time of discharge his creatinine had normalized to 0.99. His CONOR was attributed to hypoperfusion hemodynamic impairment related to left heart dysfunction. He was placed on a Lasix drip as he was fluid overloaded with pitting bilateral L/E edema, bilateral pleural effusions, and rales on auscultation. He responded well to the Lasix drip and it was discontinued one day later. He was converted to intermittent IV dosing of Lasix. Patient was found to have a large 3 cm x 4 cm thrombus in the left ventricle at [facility]. He was started on Coumadin therapy for anticoagulation. Upon admission to the hospital his INR was 5.8. His Coumadin was held. On day one his INR increased to 8.1. On day to his INR decreased on the 2.6. At this time his Coumadin was restarted with an initial dose of 7.5 mg and will be continued with a daily dose of 5 mg. Patient received bronchodilators throughout his stay to improve oxygenation. He was maintained on 2 L nasal cannula with oxygen saturation in the mid-upper 90s. Cardiology was consulted and saw patient this and has placed transfer orders to [facility] for evaluation for LVAD. Accepting physician is Dr. Dorsey. Prior studies. 09/26/16: Jadwin echocardiogram LVEF 15%, large LV thrombus 4cm x 3 cm, moderate TR, RV systolic pressure 45 mmHg, signs consistent with increased right atrial pressure. 07/25/16: echocardiogram shows LVEF 10-15%, moderately dilated LV, severe global LV systolic dysfunction. 09/02/16: PFTs reveal moderate obstructive ventilatory impairment with moderate gas diffusion exchange abnormality,and decreased total lung capacity. Echocardiogram: Echocardiogram revealed in EF of 15 to 20%, a moderately dilated left ventricle. Severe global left ventricular systolic dysfunction, with indeterminate diastolic function. Extensive left ventricular thrombus extending from the mid-apical interior and apex segments of the left ventricle. With a moderately dilated hyperkinetic right ventricle, moderate biatrial enlargement, mild mitral regurgitation, moderate tricuspid regurgitation, mild pulmonary hypertension. Estimated RVSP 37-42 mmHg. All wall segments showed hypokinesis. Abdomen/Pelvis CT 10/29/16 13:00 IMPRESSION: Question of thrombus in the partially visualized left ventricle near the apex. Recommend correlation with echocardiogram. Small to moderate left and moderate to large right pleural effusions, with associated compressive atelectasis. Mild pericardial effusion. Moderate ascites. Gallbladder wall thickening with pericholecystic fluid, although nonspecific, likely related to fluid status and ascites. Cholecystitis is considered less likely. Hepatic steatosis. 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 Reactive retroperitoneal and mesenteric lymph nodes. D/ / Stanley Hernández MD / Stanley Hernández MD Interpreting Provider: Stanley Hernández MD Chest CTA 10/29/16 13:33 IMPRESSION: *No evidence of a pulmonary embolism. *Bilateral pleural effusions, right side greater than left, with associated atelectasis in the lung bases, stable. *Cardiomegaly with findings suggestive of right-sided heart failure. *Emphysema. *Enlarged mediastinal and right hilar lymph nodes, presumably reactive, unchanged. *Ascites, incompletely imaged, increased from the previous study. D/ / 10/29/2016 15:05:26 Antelmo Garcia MD / Liza Roth Interpreting Provider: Antelmo Garcia MD Chest X-Ray 10/31/16 04:00 IMPRESSION: Stable cardiomegaly and interstitial changes which may represent edema in the setting of acute congestive heart failure. Stable mild right lower lobe atelectasis versus pneumonia. D/ / 10/31/2016 08:04:49 Tito Chew MD / sebastian Interpreting Provider: Tito Chew MD - Time Spent with Patient Total time spent providing and/or coordinating discharge services: Greater than 30 minutes Physical Examination Vital Signs: Vital Signs, Last 4 Hours Pulse Resp BP Pulse Ox 10/31/16 07:32 100 10/31/16 07:00 121 20 88/62 99 10/31/16 06:00 100 22 89/65 96 General appearance: alert Eyes: nonicteric ENT: oropharynx moist Neck: supple Effort: mildly labored Auscultation: bilateral: wheezes, rales Cardiovascular: regular rate and rhythm, other (tachycardia) Gastrointestinal: normoactive bowel sounds, soft, non-tender Integumentary: normal Extremities: no cyanosis, edema, other (ascites) normal mental status, non-focal exam, pupils equal and round, CN II-XII normal anxious
[2016-10-31] MEDS: Nicotine 7 MG PATCH.TD24 TD SCH (09:41)
[2016-10-31] MEDS: Pantoprazole 40 MG VIAL IVPB SCH (09:42)
--- NOTE | 2016-10-31 11:12 | Cardiology Progress Note ---
Date of Encounter: 10/31/16 Time of Encounter: 09:30 Assessment and Plan Discussion w patient/family: The assessment and plan as outlined above was discussed with the patient and/or family members who expressed understanding and agreement. All questions were answered. Thank you for involving us in the care of your patient. Please call with any questions. Reviewed his echo shows a ef of 10% with a large LV thrombus , severe MR and TR , RV function is also reduced (pre inotropes) Subjective Principal diagnosis: CHF Interval history: less sob, dobtamine seems to have helped no pnd, cp, Objective Vital Signs, Last 4 Hours Pulse Resp BP Pulse Ox 10/31/16 11:05 103 10/31/16 10:00 103 20 84/64 98 10/31/16 09:00 104 20 90/63 98 10/31/16 07:32 100 Cardiac: Other (soft s3 ) Results 10/31/16 03:00 10/31/16 03:00 Lab Results 10/31/16 10/31/16 10/31/16 03:00 03:00 03:00 WBC 10.6 Hgb 12.8 L D Hct 38.2 Plt Count 255 INR 2.6 D Sodium 132 L Potassium 3.7 D Chloride 97 L Carbon Dioxide 25 BUN 26 Creatinine 0.99 Glucose 129 H Calcium 8.0 L Total Bilirubin 1.2 AST 232 H ALT 244 H Alkaline Phosphatase 81 Consult Discharge Plan - Plan Referrals: Josias Hurley DO [Primary Care Provider] -
[2016-10-31] MEDS ORDERED: *HR* Warfarin 7.5 MG TABLET PO ONE (11:32)
[2016-10-31] MEDS: Budesonide Neb 0.5 MG/2 ML IH SCH (11:33)
[2016-10-31] MEDS ORDERED: Furosemide 40 MG/4 ML VIAL IVP SCH (12:00)
[2016-10-31 15:24] VITALS: BP 95/69
--- NOTE | 2016-10-31 17:40 | Electrocardiograph Report ---
[address] [place] [address] Test Date: 2016-10-29 Pat Name: Jason Hardwick Department: [id number] Room: [facility] Gender: M Metal Polisher: : 1950 Requested By: Hamlet Grady Order Number: [id number] Reading MD: Mackenzie Leavitt Measurements Intervals [place] Rate: 116 P: 11 WV: 120 QRS: -41 QRSD: 98 T: 122 QT: 337 QTc: 406 Interpretive Statements SINUS TACHYCARDIA LEFT AXIS DEVIATION MODERATE T-WAVE ABNORMALITY, CONSIDER LATERAL ISCHEMIA CONSIDER LEFT ATRIAL ABNORMALITY Electronically Signed On 10-31-2016 17:38:38 EST by Mackenzie Leavitt
[2016-11-01] MEDS ORDERED: *HR* Warfarin 5 MG TABLET PO SCH (18:00)
== END 2016-10-31 16:50 | disposition short-term general hospital (02) | DRG 291 ==
LOC: EMEROO 11:44 → ICNU 13:42
PROVIDERS: ADMIT Internal Medicine; ATTEND Internal Medicine